=== PATIENT | male | born 1955 | race Caucasian/White ===

== ENCOUNTER 2017-02-11 15:59 | Inpatient (IN) | payer MEDICAID, OTHER, SELFPAY ==
[2017-02-11] MEDS ORDERED: Sodium Chloride 0.9% 1,000 ML IV ONE (16:07)
--- NOTE | 2017-02-11 16:11 | C.PDOC ---
History Of Present Illness 61 y/o male BIBA s/p lifenet EKG showing STEMI. . 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 EMS was called and on arrival, patient found to be hypotensive, bradycardic. IV fluids given, EKG showing ST elevations in lateral leads. Pt initially somnolent and groggy on arrival to ED, currently awake, alert and speaking. Pt currently complaining of left sided chest pain radiating to left arm. Blood pressure improved, aspirin given prior to going to medical laboratory technician. Dr Lockett at bedside on patient arrival who went with patient to medical laboratory technician. past medical history diabetes on metformin. Time Seen by Provider: 02/11/17 16:10 Chief Complaint (Nursing): Chest Pain History Per: Patient, EMS History/Exam Limitations: clinical condition Onset/Duration Of Symptoms: Mins Current Symptoms Are (Timing): Still Present Severity: Moderate Quality: "Pain" Associated Symptoms: Diaphoresis Alleviating Factors: None Recent travel outside of the [place]: No Additional History Per: Family Past Medical History Reviewed: Historical Data, Nursing Documentation, Vital Signs Vital Signs: Last Vital Signs Temp 97.9 F 02/12/17 04:00 Pulse 96 H 02/12/17 07:02 Resp 21 02/12/17 07:02 BP 118/77 02/12/17 07:02 Pulse Ox 94 L 02/12/17 07:02 Family History: States: Unknown Family Hx - Social History Hx Alcohol Use: No Hx Substance Use: No Review Of Systems Review Of Systems: ROS cannot be obtained secondary to pt's inabilty to answer questions. (not obtained due to critical nature of patient) Cardiovascular: Positive for: Chest Pain (left sided radiating to left arm) Physical Exam - Physical Exam Appears: Non-toxic, No Acute Distress Skin: Warm, Dry, No Rash Head: Atraumatic, Normacephalic Neck: Normal, Normal ROM, Supple Chest: Symmetrical Cardiovascular: Rhythm Regular Respiratory: Normal Breath Sounds, No Rales, No Rhonchi, No Wheezing Extremity: No Pedal Edema Extremity: Bilateral: Atraumatic Neurological/Psych: Oriented x3, Normal Speech, Normal Cognition ED Course And Treatment - Laboratory Results Result Diagrams: 02/12/17 05:57 02/12/17 05:57 O2 Sat by Pulse Oximetry: 100 (room air) Pulse Ox Interpretation: Normal Progress Note: Pt seen immediately upon arrival, Lifenet seen and code heart activated prior to patient arrival. Plan: EKG, labs, CXR, IV fluids, medical laboratory technician Disposition Discussed With : Johanna Claire Doctor Will See Patient In The: Hospital Counseled Patient/Family Regarding: Studies Performed - Disposition Disposition: HOSPITALIZED Disposition Time: 16:10 Condition: CRITICAL - Clinical Impression Clinical Impression: Acute myocardial infarction, STEMI (ST elevation myocardial infarction) - Scribe Statement The provider has reviewed the documentation as recorded by the Aquilino Lynch Provider Attestation: All medical record entries made by the Aquilino were at my direction and personally dictated by me. I have reviewed the chart and agree that the record accurately reflects my personal performance of the history, physical exam, medical decision making, and the department course for this patient. I have also personally directed, reviewed, and agree with the discharge instructions and disposition. Decision To Admit - Pt Status Changed To: Hospital Disposition Of: Inpatient - Admit Certification Admit to Inpatient:: After my assessment, the patient will require hospitalization for at least two midnights. This is because of the severity of symptoms shown, intensity of services needed, and/or the medical risk in this patient being treated as an outpatient. - InPatient: Physician Admission Certification: I certify that this patient requires 2 or more midnights of care for the following reason:: stemi - . Bed Request Type: ICU Patient Diagnosis: Acute myocardial infarction, STEMI (ST elevation myocardial infarction)
[2017-02-11] MEDS ORDERED: Iodixanol 320 MG/ML 100 ML BOTTLE IV ONE ×2 (16:12→16:44)
[2017-02-11] MEDS ORDERED: Lidocaine 2% Inj (20ml) ONE (16:13)
[2017-02-11] MEDS ORDERED: Phenylephrine 10 mg/ml Inj ONE (16:13)
[2017-02-11] MEDS ORDERED: Nitroglycerin 50mg in D5W 0 MG/0 ML BOTTLE IV ONE (16:13)
[2017-02-11] MEDS ORDERED: Midazolam 2 MG/2 ML VIAL ONE (16:25)
[2017-02-11 16:29] LABS: BASO % 0.4 % (0.0-2.0); EOS # 0.2 K/uL (0.0-0.7); EOS % 2.9 % (0.0-4.0); HEMOGLOBIN 14.6 g/dL (12.0-18.0); LYMPH # 2.6 K/uL (1.0-4.3); LYMPH % 37.7 % (20.0-40.0); MEAN CELL VOLUME 89.6 fL (80.0-94.0); MEAN CORPUSCULAR HEMOGLOBIN 30.3 pg (27.0-31.0); MEAN CORPUSCULAR HGB CONC 33.8 g/dL (33.0-37.0); MEAN PLATELET VOLUME 7.2 fL (7.2-11.7); MONO # 0.7 K/uL (0.0-0.8); MONO % 9.7 % (0.0-10.0); NEUT # 3.4 K/uL (1.8-7.0); NEUT % 49.3 % (50.0-75.0); RBC 4.81 Mil/uL (4.40-5.90); RED CELL DISTRIBUTION WIDTH 14.2 % (11.5-14.5)
[2017-02-11 16:33] LABS: ALBUMIN 2.8 g/dL (3.5-5.0)
[2017-02-11 16:35] LABS: PROTHROMBIN TIME 11.5 SECONDS (9.7-12.2)
[2017-02-11 16:36] LABS: AST/SGOT 18 U/L (17-59); GFR AFRICAN-AMERICAN > 60; GFR NON-AFRICAN AMERICAN > 60
[2017-02-11 16:37] LABS: ALT/SGPT 24 U/L (21-72); BLOOD UREA NITROGEN 15 mg/dL (9-20); CALCIUM 8.2 mg/dl (8.6-10.4)
[2017-02-11] MEDS: Eptifibatide 0.75 mg/ml 75 MG/100 ML BOTTLE IV SCH (18:30)
[2017-02-11] MEDS: Sodium Chloride 0.9% 500 ML IV SCH (18:30)
--- NOTE | 2017-02-11 19:09 | CP.PCM.CON ---
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 He reports that while in the doctor's office, he felt short of breath, slight chest discomfort, and lost consciousness. He states he regained consciousness when he arrived at [facility]. Patient reports having left arm numbness for about 3 months. Patient is s/p cardiac cath which showed LCA 100% occluded, Mid-RCA 60-70% occluded, and proximal RCA 30-40% occluded. He currently smokes 2 packs per day and has smoked for 40 years. Currently, patient reports his headache is a little better and still have left arm numbness. Patient denies having chest pain, palpitations, nausea, vomiting, shortness of breath, dizziness, lightheadedness, changes in vision, and dysuria. Review of Systems - Constitutional Constitutional: Headache - EENT Eyes: absent: Change in Vision, Other Visual Disturbances Ears: absent: Dizziness - Cardiovascular Cardiovascular: Radiating Pain (to left arm with numbness). absent: Chest Pain , Dyspnea, Edema, Palpitations - Respiratory Respiratory: absent: Dyspnea - Gastrointestinal Gastrointestinal: absent: Abdominal Pain, Nausea, Vomiting - Genitourinary Genitourinary: absent: Dysuria - Musculoskeletal Musculoskeletal: Numbness (left arm), Tingling - Neurological Neurological: Numbness (left arm). absent: Dizziness, Loss of Vision - Endocrine Endocrine: absent: Palpitations Past Patient History - Past Social History Smoking Status: Never Smoked - ENDOCRINE/METABOLIC Hx Diabetes Mellitus Type 2: Yes - MUSCULOSKELETAL/RHEUMATOLOGICAL Hx Falls: No - PSYCHIATRIC Hx Substance Use: No - SURGICAL HISTORY Hx Surgeries: No Meds Allergies/Adverse Reactions: Allergies Allergy/AdvReac Type Severity Reaction Status Date / Time No Known Allergies Allergy Unverified 02/11/17 16:04 - Medications Medications: Current Medications Aspirin (Aspirin Chewable) 81 mg PO DAILY [facility] Carvedilol (Coreg) 3.125 mg PO BID [facility] Enalapril Maleate (Vasotec) 2.5 mg PO DAILY [facility] Furosemide (Lasix) 40 mg IVP ONCE ONE Stop: 02/12/17 04:01 Sodium Chloride (Sodium Chloride 0.9%) 500 mls @ 50 mls/hr IV .Q10H [facility] Stop: 02/12/17 04:00 Eptifibatide (Integrilin) 75 mg in 100 mls @ 5 mls/hr IV .Q20H [facility] Stop: 02/12/17 17:12 Insulin Human Regular (Novolin R) 0 unit SC ACHS [facility] PRN Reason: Protocol Rosuvastatin Calcium (Crestor) 5 mg PO HS [facility] Ticagrelor (Brilinta) 90 mg PO BID [facility] Physical Exam - Head Exam Head Exam: ATRAUMATIC, NORMAL INSPECTION - Eye Exam Eye Exam: EOMI, Normal appearance - ENT Exam ENT Exam: Mucous Membranes Moist - Respiratory Exam Respiratory Exam: Clear to Auscultation Bilateral, NORMAL BREATHING PATTERN. absent: Rhonchi, Wheezes - Cardiovascular Exam Cardiovascular Exam: REGULAR RHYTHM, +S1, +S2 - GI/Abdominal Exam GI & Abdominal Exam: Firm, Normal Bowel Sounds. absent: Tenderness - Extremities Exam Extremities exam: Positive for: normal inspection. Negative for: calf tenderness, pedal edema, tenderness - Neurological Exam Neurological exam: Alert, Oriented x3 - Psychiatric Exam Psychiatric exam: Normal Affect, Normal Mood - Skin Skin Exam: Dry, Intact, Normal Color, Warm Results - Vital Signs Recent Vital Signs: Last Vital Signs Temp 98 F 02/11/17 16:00 Pulse 70 02/11/17 16:05 Resp 22 02/11/17 16:00 BP 110/75 02/11/17 16:00 Pulse Ox 100 02/11/17 16:23 - Labs Result Diagrams: 02/11/17 16:15 02/11/17 16:15 Labs: Laboratory Results - last 24 hr 02/11/17 02/11/17 02/11/17 16:15 16:15 16:15 WBC 7.0 RBC 4.81 Hgb 14.6 Hct 43.1 MCV 89.6 D MCH 30.3 MCHC 33.8 RDW 14.2 Plt Count 281 MPV 7.2 Neut % (Auto) 49.3 L Lymph % (Auto) 37.7 [place] % (Auto) 9.7 Eos % (Auto) 2.9 Baso % (Auto) 0.4 Neut # 3.4 Lymph # 2.6 [place] # 0.7 Eos # 0.2 Baso # 0.0 PT 11.5 INR 1.0 APTT 27 Sodium 137 Potassium 4.3 Chloride 99 Carbon Dioxide 27 Anion Gap 15 BUN 15 Creatinine 1.1 Est GFR ( Amer) > 60 Est GFR (Non-Af Amer) > 60 Random Glucose 161 H Calcium 8.2 L Total Bilirubin 0.5 AST 18 ALT 24 Alkaline Phosphatase 79 Troponin I Total Protein 5.6 L Albumin 2.8 L Globulin 2.8 Albumin/Globulin Ratio 1.0 Blood Type Antibody Screen 02/11/17 02/11/17 16:15 16:15 WBC RBC Hgb Hct MCV MCH MCHC RDW Plt Count MPV Neut % (Auto) Lymph % (Auto) [place] % (Auto) Eos % (Auto) Baso % (Auto) Neut # Lymph # [place] # Eos # Baso # PT INR APTT Sodium Potassium Chloride Carbon Dioxide Anion Gap BUN Creatinine Est GFR ( Amer) Est GFR (Non-Af Amer) Random Glucose Calcium Total Bilirubin AST ALT Alkaline Phosphatase Troponin I < 0.0120 Total Protein Albumin Globulin Albumin/Globulin Ratio Blood Type O POSITIVE Antibody Screen Negative Assessment & Plan - Assessment and Plan (Free Text) Assessment: Neuro: - Alert and oriented x3 Pulm: -Chest xray: f/u CV: - EKG: Acute IN; ST elevations in V1-6 - Code Heart in ED - Cath: LCA 100% occluded; Mid RCA 60-70% occluded, Proximal RCA 30-40% occluded - ECHO: f/u in AM - R/O acute vs chronic IN - Started Integrelin drip- will continue for 24hours, and will finish at 5pm tomorrow. - ROMIs: @16:15 <0.0120& @18:38 <0.104 Endo: - Diabetes- Accucheck - Monitor blood glucose GI: -AST 18, ALT 24 - F/U AM labs Heme: - Monitor H/H Renal: - Monitor BUN/Cr
--- NOTE | 2017-02-11 19:35 | CP.PCM.PN ---
<Ely Hannah - Last Filed: 02/11/17 19:29> Subjective - Date & Time of Evaluation Date of Evaluation: 02/11/17 Time of Evaluation: 03:20 - Subjective Subjective: Code heart called. Per patient's who was present at bedside the patient was at his eye doctor appointment early today and was complaining of a headache. He then passed out at the office. EMS was called and the patient was hypotensive and bradycardic. IV fluids were administered and EKg in the field revealed ST elevations in the later leads. Patient was groggy on arrival and was awake alert and oriented. He was complaining of chest pain which was radiating down his left arm. Dr. Claire was notified. The patient was given aspirin and brilinta and was taken immediately to the labor delivery specialist for intervention. Patient's stated the patient has a history of diabetes but no history of cardiac disease. She stated he took Metformin and 2 other pills this morning. Objective - Vital Signs/Intake and Output Vital Signs (last 24 hours): Temp Pulse Resp BP Pulse Ox 98 F 70 22 110/75 100 02/11/17 16:00 02/11/17 16:05 02/11/17 16:00 02/11/17 16:00 02/11/17 16:23 - Medications Medications: Current Medications Aspirin (Aspirin Chewable) 81 mg PO DAILY [facility] Carvedilol (Coreg) 3.125 mg PO BID [facility] Enalapril Maleate (Vasotec) 2.5 mg PO DAILY [facility] Furosemide (Lasix) 40 mg IVP ONCE ONE Stop: 02/12/17 04:01 Sodium Chloride (Sodium Chloride 0.9%) 500 mls @ 50 mls/hr IV .Q10H [facility] Stop: 02/12/17 04:00 Eptifibatide (Integrilin) 75 mg in 100 mls @ 5 mls/hr IV .Q20H [facility] Stop: 02/12/17 17:12 Insulin Human Regular (Novolin R) 0 unit SC ACHS [facility] PRN Reason: Protocol Rosuvastatin Calcium (Crestor) 5 mg PO HS [facility] Ticagrelor (Brilinta) 90 mg PO BID [facility] Last Admin: 02/11/17 19:26 Dose: Not Given - Labs Labs: 02/11/17 16:15 02/11/17 16:15 PT 11.5 SECONDS (9.7-12.2) 02/11/17 16:15 INR 1.0 02/11/17 16:15 APTT 27 SECONDS (21-34) 02/11/17 16:15 - Constitutional Appears: Non-toxic, No Acute Distress - Head Exam Head Exam: ATRAUMATIC, NORMAL INSPECTION - Eye Exam Eye Exam: EOMI - ENT Exam ENT Exam: Mucous Membranes Moist - Respiratory Exam Respiratory Exam: Clear to Ausculation Bilateral, NORMAL BREATHING PATTERN. absent: Respiratory Distress - Cardiovascular Exam Cardiovascular Exam: REGULAR RHYTHM, +S1, +S2 - GI/Abdominal Exam GI & Abdominal Exam: Soft, Normal Bowel Sounds. absent: Distended, Firm, Guarding, Tenderness - Back Exam Back Exam: NORMAL INSPECTION - Neurological Exam Neurological Exam: Alert, Awake, CN II-XII Intact, Oriented x3 - Psychiatric Exam Psychiatric exam: Anxious, Normal Affect, Normal Mood Assessment and Plan - Assessment and Plan (Free Text) Assessment: For cardiac intervention then will be transferred to ICU. <Janice Lockett V - Last Filed: 02/12/17 22:32> Objective - Vital Signs/Intake and Output Vital Signs (last 24 hours): Temp Pulse Resp BP Pulse Ox 98.3 F 88 26 H 111/63 96 02/12/17 20:00 02/12/17 21:00 02/12/17 21:00 02/12/17 21:03 02/12/17 21:00 Intake and Output: 02/12/17 02/13/17 18:59 06:59 Intake Total 605 100 Output Total 1150 200 Balance -545 -100 - Medications Medications: Current Medications Aspirin (Aspirin Chewable) 81 mg PO DAILY [facility] Last Admin: 02/12/17 09:30 Dose: 81 mg Carvedilol (Coreg) 3.125 mg PO BID [facility] Last Admin: 02/12/17 18:34 Dose: 3.125 mg Enalapril Maleate (Vasotec) 2.5 mg PO DAILY [facility] Last Admin: 02/12/17 09:29 Dose: 2.5 mg Famotidine (Pepcid) 20 mg PO BID [facility] Last Admin: 02/12/17 18:34 Dose: 20 mg Insulin Human Regular (Novolin R) [address] [facility] PRN Reason: Protocol Last Admin: 02/12/17 21:29 Dose: Not Given Nicotine (Nicoderm Cq) 1 patch TD DAILY [facility] Last Admin: 02/12/17 10:59 Dose: 1 patch Rosuvastatin Calcium (Crestor) 5 mg PO HS [facility] Last Admin: 02/12/17 21:38 Dose: 5 mg Ticagrelor (Brilinta) 90 mg PO BID [facility] Last Admin: 02/12/17 18:34 Dose: 90 mg - Labs Labs: 02/12/17 05:57 02/12/17 05:57 PT 11.5 SECONDS (9.7-12.2) 02/11/17 16:15 INR 1.0 02/11/17 16:15 APTT 27 SECONDS (21-34) 02/11/17 16:15 Attending/Attestation - Attestation I have personally seen and examined this patient.: Yes I have fully participated in the care of the patient.: Yes I have reviewed all pertinent clinical information, including history, physical exam and plan: Yes Notes (Text): Hospitalist Note (Responded to Code Heart Called in the ED). on 02/11/17 [facility] called on 02/11/[address] elevation PR. Per patient's who was present at bedside the patient was at his eye doctor appointment early today and was complaining of a headache and chest pain. He then passed out at the office. EMS was called and the patient was hypotensive ( SBP: 70s) and bradycardic. Per parademic,IV fluids were administered (sbp: low 100s) and EKg in the field revealed ST elevations in the lateral leads. Patient was groggy on arrival, but more awake alert and oriented, speaking in Amharic. He was complaining of chest pain which was radiating down his left arm. Code heart was activated, Dr Claire immigration consultant for code heart notified. In the ED, the patient was given aspirin and brilinta and was taken immediately to the labor delivery specialist for intervention. Patient's stated the patient has a history of diabetes but no history of cardiac disease, big smoker, no family hx of PR, no personal hx of PR for her . She stated he took Metformin and 2 other pills this morning. Patient accompanied to labor delivery specialist. Meet with cath team and briefly discussed with Dr. Claire.
[2017-02-11] MEDS ORDERED: Simethicone 80 mg Chewtab PO STA (20:31)
[2017-02-11] MEDS: (Novolin R) Insulin Human Regular 100 units/ml vial SC SCH (22:00)
[2017-02-12 02:28] LABS: CK-MB 91.5 ng/mL (0.0-3.38)
--- NOTE | 2017-02-12 03:04 | CARDCATH ---
PROCEDURE DATE: 02/11/2017 BRIEF CLINICAL HISTORY: The patient is a 61-year-old male with history of hypertension, hyperlipidemia, diabetes. 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 He became diaphoretic,911 was called in. The patient was thought to have an inferior wall myocardial infarction. The patient was transferred to the [facility] where he was consented for the primary angioplasty. PROCEDURE TECHNIQUE: After obtaining the consent, the patient was prepared for the procedure. Right groin was used for access and after obtaining access, a 6-Mauritanian sheath was introduced into the right femoral artery and access was completed without complications. A 6-Mauritanian, 3.5 XB LAD guiding catheter was used to visualize the left coronary artery system. A 6-Mauritanian JR4 diagnostic catheter were used to visualize the right coronary artery system. A 6-Mauritanian pigtail catheter was used to assess the left ventricular diastolic pressure and LV gram. FINDINGS: The patient had 100% proximal LAD with heavy calcification. The patient had a mid RCA above 60% to 70% focal lesion. The patient has 20% to 30% proximal circumflex lesion. After obtaining the initial pictures , intervention was attempted. Balloon was dilated across the lesion and it was felt that the patient had heavy calcification and there was suspicion that it may have dissected, so balloon was withdrawn, but there was no staining seen. Multiple attempts were made to cross the wire. The wire was going through the diagonal branch or the circumflex or septal branch. After multiple attempts and using 200 mL of dye and spending about an hour on the procedure. The procedure was aborted because risk of the complication was greater at this point. The patient tolerated the procedure well. He was asymptomatic. There was no chest pain and then the patient stable. PLAN: The patient will be taken to the ICU where he will be monitored. The patient will be given Integrilin for 24 hours. He will be continued on aspirin, Brilinta, beta-blockers, MADALYN inhibitors, lipid lowering agents. He will be given IV fluids with Lasix and will have an echocardiogram done in the morning. Johanna Claire MD [facility]
[2017-02-12] MEDS: Sodium Chloride 0.9% 500 ML IV SCH (04:00)
[2017-02-12 06:04] LABS: BASO % 0.2 % (0.0-2.0); EOS % 0.1 % (0.0-4.0); HEMOGLOBIN 15.6 g/dL (12.0-18.0); LYMPH # 0.9 K/uL (1.0-4.3); LYMPH % 7.6 % (20.0-40.0); MEAN CELL VOLUME 90.6 fL (80.0-94.0); MEAN CORPUSCULAR HEMOGLOBIN 29.6 pg (27.0-31.0); MEAN CORPUSCULAR HGB CONC 32.6 g/dL (33.0-37.0); MEAN PLATELET VOLUME 8.1 fL (7.2-11.7); MONO # 0.8 K/uL (0.0-0.8); MONO % 6.4 % (0.0-10.0); NEUT # 10.2 K/uL (1.8-7.0); NEUT % 85.7 % (50.0-75.0); PLATELET COUNT 231 K/uL (130-400); RBC 5.27 Mil/uL (4.40-5.90); RED CELL DISTRIBUTION WIDTH 13.9 % (11.5-14.5); WHITE BLOOD COUNT 11.8 K/uL (4.8-10.8)
[2017-02-12 06:17] LABS: ALBUMIN 3.1 g/dL (3.5-5.0)
[2017-02-12 06:20] LABS: ALT/SGPT 69 U/L (21-72); AST/SGOT 463 U/L (17-59); BLOOD UREA NITROGEN 15 mg/dL (9-20); GFR AFRICAN-AMERICAN > 60; GFR NON-AFRICAN AMERICAN > 60
[2017-02-12 06:21] LABS: CALCIUM 8.2 mg/dl (8.6-10.4); MAGNESIUM 1.6 mg/dL (1.6-2.3)
[2017-02-12 08:12] LABS: LYMPHOCYTE 9 % (20-40); MONOCYTE 5 % (0-10); NEUTROPHIL 86 % (50-75); PLATELET ESTIMATE NORMAL (NORMAL); TOTAL CELLS COUNTED 100
[2017-02-12] MEDS ORDERED: Eptifibatide 0.75 mg/ml 75 MG/100 ML BOTTLE IV ONE (08:45)
[2017-02-12] MEDS ORDERED: Eptifibatide 20 mg/10mL Inj IVP ONE (08:46)
--- NOTE | 2017-02-12 09:06 | RAD ---
PROCEDURE: CHEST RADIOGRAPH, 1 VIEW HISTORY: chest pain COMPARISON: None available. FINDINGS: LUNGS: Mild to moderate venous congestion with right hilar prominence. PLEURA: No pneumothorax or pleural fluid seen. CARDIOVASCULAR: Normal. OSSEOUS STRUCTURES: No significant abnormalities. VISUALIZED UPPER ABDOMEN: Normal. OTHER FINDINGS: None. IMPRESSION: Mild to moderate venous congestion with right hilar prominence.
[2017-02-12] MEDS: (Novolin R) Insulin Human Regular 100 units/ml vial SC SCH ×7 (09:30→21:29)
[2017-02-12] MEDS: Eptifibatide 0.75 mg/ml 75 MG/100 ML BOTTLE IV SCH ×2 (09:48→15:49)
--- NOTE | 2017-02-12 10:30 | CP.PCM.HP ---
<SarahivincentHailey JuniVega - Last Filed: 02/12/17 13:59> History of Present Illness - History of Present Illness History of Present Illness: CC: "I was brought in for a heart attack" HPI: 61 year old male with a medical history of hypertension, diabetes, and hypercholesteremia, presents to the ED via ambulance after experiencing left arm numbness and pain, sweating and severe headache while in 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 He reports that while in the doctor's office, he felt short of breath, slight chest discomfort, and lost consciousness. He states he regained consciousness when he arrived at [facility]. Patient reports having left arm numbness for about 3 months. Patient is s/p cardiac cath which showed LCA 100% occluded, Mid-RCA 60-70% occluded, and proximal RCA 30-40% occluded. He currently smokes 2 packs per day and has smoked for 40 years. Currently, patient reports his headache is a little better and still have left arm numbness. Patient denies having chest pain, palpitations, nausea, vomiting, shortness of breath, dizziness, lightheadedness, changes in vision, and dysuria. PMD: Dr. Mota PMHx: Diabetes, HTN, hypercholesteremia SurgHx: denies FamHx: denies SocHx: 2ppd for 40 yrs; denies alcohol and drug use Allergies: NKDA Medications: metformin and other medications for his DM and HTN "doesn't remember names" Present on Admission - Present on Admission Any Indicators Present on Admission: Yes History of Uncontrolled Diabetes: Yes Review of Systems - Constitutional Constitutional: Headache - EENT Eyes: absent: Change in Vision, Other Visual Disturbances Ears: absent: Dizziness - Cardiovascular Cardiovascular: Radiating Pain (left arm). absent: Chest Pain, Dyspnea, Edema, Palpitations - Respiratory Respiratory: absent: Cough, Dyspnea - Gastrointestinal Gastrointestinal: absent: Abdominal Pain, Nausea, Vomiting - Genitourinary Genitourinary: absent: Dysuria - Musculoskeletal Musculoskeletal: Numbness (left arm), Tingling - Neurological Neurological: Numbness (left arm), Headaches. absent: Dizziness, Loss of Vision - Endocrine Endocrine: absent: Palpitations Past Patient History - Past Medical History & Family History Past Medical History?: Yes - Past Social History Smoking Status: Never Smoked - CARDIAC Hx Cardiac Disorders: Yes Hx Hypercholesterolemia: Yes Hx Hypertension: Yes - PULMONARY Hx Respiratory Disorders: No - NEUROLOGICAL Hx Neurological Disorder: No - HEENT Hx HEENT Problems: Yes Other/Comment: eyglasses for driving - RENAL Hx Chronic Kidney Disease: No - ENDOCRINE/METABOLIC Hx Diabetes Mellitus Type 2: Yes - HEMATOLOGICAL/ONCOLOGICAL Hx Blood Disorders: No - INTEGUMENTARY Hx Dermatological Problems: No - MUSCULOSKELETAL/RHEUMATOLOGICAL Hx Falls: No - GASTROINTESTINAL Hx Gastrointestinal Disorders: No - GENITOURINARY/GYNECOLOGICAL Hx Genitourinary Disorders: No - PSYCHIATRIC Hx Substance Use: No - SURGICAL HISTORY Hx Surgeries: No - ANESTHESIA Hx Anesthesia: No Hx Anesthesia Reactions: No Hx Malignant Hyperthermia: No Meds Allergies/Adverse Reactions: Allergies Allergy/AdvReac Type Severity Reaction Status Date / Time No Known Allergies Allergy Unverified 02/11/17 16:04 Physical Exam - Head Exam Head Exam: NORMAL INSPECTION, NORMOCEPHALIC - Eye Exam Eye Exam: EOMI, Normal appearance - ENT Exam ENT Exam: Mucous Membranes Moist - Respiratory Exam Respiratory Exam: Clear to Auscultation Bilateral, NORMAL BREATHING PATTERN. absent: Rhonchi, Wheezes - Cardiovascular Exam Cardiovascular Exam: REGULAR RHYTHM, +S1, +S2 - GI/Abdominal Exam GI & Abdominal Exam: Firm, Normal Bowel Sounds. absent: Tenderness - Extremities Exam Extremities exam: Positive for: normal inspection. Negative for: calf tenderness, pedal edema, tenderness - Neurological Exam Neurological exam: Alert, Oriented x3 - Psychiatric Exam Psychiatric exam: Normal Affect, Normal Mood - Skin Skin Exam: Dry, Intact, Normal Color, Warm Results - Vital Signs Recent Vital Signs: Last Vital Signs Temp 98.3 F 02/12/17 09:00 Pulse 76 02/12/17 10:10 Resp 22 02/12/17 10:10 BP 126/87 02/12/17 10:02 Pulse Ox 96 02/12/17 10:10 - Labs Result Diagrams: 02/12/17 05:57 02/12/17 05:57 Labs: Laboratory Results - last 24 hr 02/11/17 02/11/17 02/11/17 16:15 16:15 16:15 WBC 7.0 RBC 4.81 Hgb 14.6 Hct 43.1 MCV 89.6 D MCH 30.3 MCHC 33.8 RDW 14.2 Plt Count 281 MPV 7.2 Neut % (Auto) 49.3 L Lymph % (Auto) 37.7 [place] % (Auto) 9.7 Eos % (Auto) 2.9 Baso % (Auto) 0.4 Neut # 3.4 Lymph # 2.6 [place] # 0.7 Eos # 0.2 Baso # 0.0 Neutrophils % (Manual) Lymphocytes % (Manual) Monocytes % (Manual) Platelet Estimate RBC Morphology PT 11.5 INR 1.0 APTT 27 Sodium 137 Potassium 4.3 Chloride 99 Carbon Dioxide 27 Anion Gap 15 BUN 15 Creatinine 1.1 Est GFR ( Amer) > 60 Est GFR (Non-Af Amer) > 60 POC Glucose (mg/dL) Random Glucose 161 H Calcium 8.2 L Phosphorus Magnesium Total Bilirubin 0.5 AST 18 ALT 24 Alkaline Phosphatase 79 Total Creatine Kinase CK-MB (Mass) Troponin I Troponin I, Quant Total Protein 5.6 L Albumin 2.8 L Globulin 2.8 Albumin/Globulin Ratio 1.0 Blood Type Antibody Screen 02/11/17 02/11/17 02/11/17 16:15 16:15 18:38 WBC RBC Hgb Hct MCV MCH MCHC RDW Plt Count MPV Neut % (Auto) Lymph % (Auto) [place] % (Auto) Eos % (Auto) Baso % (Auto) Neut # Lymph # [place] # Eos # Baso # Neutrophils % (Manual) Lymphocytes % (Manual) Monocytes % (Manual) Platelet Estimate RBC Morphology PT INR APTT Sodium Potassium Chloride Carbon Dioxide Anion Gap BUN Creatinine Est GFR ( Amer) Est GFR (Non-Af Amer) POC Glucose (mg/dL) Random Glucose Calcium Phosphorus Magnesium Total Bilirubin AST ALT Alkaline Phosphatase Total Creatine Kinase CK-MB (Mass) Troponin I < 0.0120 0.1040 Troponin I, Quant Total Protein Albumin Globulin Albumin/Globulin Ratio Blood Type O POSITIVE Antibody Screen Negative 02/11/17 02/12/17 02/12/17 21:31 01:51 05:57 WBC RBC Hgb Hct MCV MCH MCHC RDW Plt Count MPV Neut % (Auto) Lymph % (Auto) [place] % (Auto) Eos % (Auto) Baso % (Auto) Neut # Lymph # [place] # Eos # Baso # Neutrophils % (Manual) Lymphocytes % (Manual) Monocytes % (Manual) Platelet Estimate RBC Morphology PT INR APTT Sodium 135 Potassium 4.1 Chloride 99 Carbon Dioxide 24 Anion Gap 16 BUN 15 Creatinine 0.8 Est GFR ( Amer) > 60 Est GFR (Non-Af Amer) > 60 POC Glucose (mg/dL) 210 H Random Glucose 159 H Calcium 8.2 L Phosphorus 3.7 Magnesium 1.6 Total Bilirubin 0.8 AST 463 H D ALT 69 Alkaline Phosphatase 77 Total Creatine Kinase 1414 H CK-MB (Mass) 91.5 H Troponin I Troponin I, Quant 20.3000 H* Total Protein 6.2 L Albumin 3.1 L Globulin 3.1 Albumin/Globulin Ratio 1.0 Blood Type Antibody Screen 02/12/17 02/12/17 05:57 07:20 WBC 11.8 H D RBC 5.27 Hgb 15.6 Hct 47.8 MCV 90.6 MCH 29.6 MCHC 32.6 L RDW 13.9 Plt Count 231 MPV 8.1 Neut % (Auto) 85.7 H Lymph % (Auto) 7.6 L [place] % (Auto) 6.4 Eos % (Auto) 0.1 Baso % (Auto) 0.2 Neut # 10.2 H Lymph # 0.9 L [place] # 0.8 Eos # 0.0 Baso # 0.0 Neutrophils % (Manual) 86 H Lymphocytes % (Manual) 9 L Monocytes % (Manual) 5 Platelet Estimate Normal RBC Morphology Normal PT INR APTT Sodium Potassium Chloride Carbon Dioxide Anion Gap BUN Creatinine Est GFR ( Amer) Est GFR (Non-Af Amer) POC Glucose (mg/dL) 158 H Random Glucose Calcium Phosphorus Magnesium Total Bilirubin AST ALT Alkaline Phosphatase Total Creatine Kinase CK-MB (Mass) Troponin I Troponin I, Quant Total Protein Albumin Globulin Albumin/Globulin Ratio Blood Type Antibody Screen Assessment & Plan (1) STEMI (ST elevation myocardial infarction) Assessment and Plan: Code Heart in ED - EKG: Acute ME; ST elevations in V1-6 - Chest xray: mild to moderate venous congestion with right hilar prominence. - Cath: LCA 100% occluded; Mid RCA 60-70% occluded, Proximal RCA 20-30% occluded - ECHO: f/u - Started Integrelin drip-for 24hours and will finish at 5pm today, 02/12/17. Will continue medical management as per Dr. Claire. - ROMIs: @16:15 <0.0120& @18:38 <0.104 - Troponin 02/12 at 1:21am: 20.3000 - Toponin 02/12 at 11:03am: 107.000 - Lipid Panel: f/u - Cardiology consulted- Dr. Claire, help appreciated - Brillinta 90mg PO BID, ASA 81mg PO daily, Coreg 3.125mg PO BID, Enalapril 2.5mg PO daily, Crestor 5mg PO HS Status: Acute (2) Diabetes Assessment and Plan: - Monitor blood glucose - Accucheck - HgbA1c: f/u - ISS Status: Acute (3) Hypertension Assessment and Plan: Monitor BP - Coreg 3.125mg PO BID Status: Acute (4) Hypercholesteremia Assessment and Plan: - Lipid Panel: f/u - Crestor 5mg PO HS Status: Acute (5) Tobacco abuse Assessment and Plan: Nicotine Patch 21mg/24hr, 1 patch TD Daily Status: Acute (6) Prophylactic measure Assessment and Plan: C/I SCDs- patient is on integrelin until 5pm on 02/12/17 Pepcid 20mg PO BID ASA 81mg PO Daily Heart Healthy Diet Status: Acute <Janice Lockett V - Last Filed: 02/12/17 22:29> Results - Vital Signs Recent Vital Signs: Last Vital Signs Temp 98.3 F 02/12/17 20:00 Pulse 88 02/12/17 21:00 Resp 26 H 02/12/17 21:00 BP 111/63 02/12/17 21:03 Pulse Ox 96 02/12/17 21:00 - Labs Result Diagrams: 02/12/17 05:57 02/12/17 05:57 Labs: Laboratory Results - last 24 hr 02/12/17 02/12/17 02/12/17 01:51 05:57 05:57 WBC 11.8 H D RBC 5.27 Hgb 15.6 Hct 47.8 MCV 90.6 MCH 29.6 MCHC 32.6 L RDW 13.9 Plt Count 231 MPV 8.1 Neut % (Auto) 85.7 H Lymph % (Auto) 7.6 L [place] % (Auto) 6.4 Eos % (Auto) 0.1 Baso % (Auto) 0.2 Neut # 10.2 H Lymph # 0.9 L [place] # 0.8 Eos # 0.0 Baso # 0.0 Neutrophils % (Manual) 86 H Lymphocytes % (Manual) 9 L Monocytes % (Manual) 5 Platelet Estimate Normal RBC Morphology Normal Sodium 135 Potassium 4.1 Chloride 99 Carbon Dioxide 24 Anion Gap 16 BUN 15 Creatinine 0.8 Est GFR ( Amer) > 60 Est GFR (Non-Af Amer) > 60 POC Glucose (mg/dL) Random Glucose 159 H Hemoglobin A1c Calcium 8.2 L Phosphorus 3.7 Magnesium 1.6 Total Bilirubin 0.8 AST 463 H D ALT 69 Alkaline Phosphatase 77 Total Creatine Kinase 1414 H CK-MB (Mass) 91.5 H Troponin I Troponin I, Quant 20.3000 H* Total Protein 6.2 L Albumin 3.1 L Globulin 3.1 Albumin/Globulin Ratio 1.0 02/12/17 02/12/17 02/12/17 07:20 11:03 11:17 WBC RBC Hgb Hct MCV MCH MCHC RDW Plt Count MPV Neut % (Auto) Lymph % (Auto) [place] % (Auto) Eos % (Auto) Baso % (Auto) Neut # Lymph # [place] # Eos # Baso # Neutrophils % (Manual) Lymphocytes % (Manual) Monocytes % (Manual) Platelet Estimate RBC Morphology Sodium Potassium Chloride Carbon Dioxide Anion Gap BUN Creatinine Est GFR ( Amer) Est GFR (Non-Af Amer) POC Glucose (mg/dL) 158 H 144 H Random Glucose Hemoglobin A1c Calcium Phosphorus Magnesium Total Bilirubin AST ALT Alkaline Phosphatase Total Creatine Kinase CK-MB (Mass) Troponin I 107.0000 H* Troponin I, Quant Total Protein Albumin Globulin Albumin/Globulin Ratio 02/12/17 02/12/17 02/12/17 14:02 15:54 21:05 WBC RBC Hgb Hct MCV MCH MCHC RDW Plt Count MPV Neut % (Auto) Lymph % (Auto) [place] % (Auto) Eos % (Auto) Baso % (Auto) Neut # Lymph # [place] # Eos # Baso # Neutrophils % (Manual) Lymphocytes % (Manual) Monocytes % (Manual) Platelet Estimate RBC Morphology Sodium Potassium Chloride Carbon Dioxide Anion Gap BUN Creatinine Est GFR ( Amer) Est GFR (Non-Af Amer) POC Glucose (mg/dL) 197 H 165 H Random Glucose Hemoglobin A1c 7.9 H D Calcium Phosphorus Magnesium Total Bilirubin AST ALT Alkaline Phosphatase Total Creatine Kinase CK-MB (Mass) Troponin I Troponin I, Quant Total Protein Albumin Globulin Albumin/Globulin Ratio Attending/Attestation - Attestation I have personally seen and examined this patient.: Yes I have fully participated in the care of the patient.: Yes I have reviewed all pertinent clinical information: Yes Notes (Text): Patient seen, examined, and case discussed with ICU Resident. Patient was Code Heart on 02/11/17; for ST Elevation ME in light of cardiac risk factors: DM, smoker, and male. Per cath, LCA 100% occluded; Mid RCA 60-70% occluded, Proximal RCA 20-30% occluded. Per cardiology, patient is on aspirin, brilinta, beta-tom, talita-inhibitor and statin for post-mI. Patient is on Integril for 24 hours post-cath. Will follow-up with half sole fitter. Had extensive conversation with the family about the deleterious effects including but not limited to ME, stroke, blindness, CKD/Dialysis, amputation and the continued smoking not only adverse side effects on the heart but also cancer risk. Patient to be monitored post-cath day one. Discussed with ICU and ICU resident. (1) STEMI (ST elevation myocardial infarction) Assessment and Plan: Admit to ICU under hospitalist service Cardiology: Dr. Claire on board Code Heart in ED on 02/11/17 - EKG: Acute ME; ST elevations in V1-6 - Chest xray: mild to moderate venous congestion with right hilar prominence. - Cath: LCA 100% occluded; Mid RCA 60-70% occluded, Proximal RCA 20-30% occluded - ECHO: f/u - Started Integrelin drip-for 24hours and will finish at 5pm today, 02/12/17. Will continue medical management as per Dr. Claire. - ROMIs: @16:15 <0.0120& @18:38 <0.104 - Troponin 8/ at 1:21am: 20.3000 - Toponin / at 11:03am: 107.000 - Lipid Panel: f/u in AM; a1c in AM - Cardiology consulted- Dr. Claire, help appreciated - Brillinta 90mg PO BID, ASA 81mg PO daily, Coreg 3.125mg PO BID, Enalapril 2.5mg PO daily, Crestor 5mg PO HS Status: Acute (2) Diabetes Assessment and Plan: - Monitor blood glucose - Accuchecks qac and HS - HgbA1c: f/u - ISS -Metformin day of cath; monitor BUN/Cr Status: Chronic (3) Hypertension Assessment and Plan: Monitor BP - Coreg 3.125mg PO BID - Enalapril 2.5mg PO daily Status: Chronic (4) Hypercholesteremia Assessment and Plan: - Lipid Panel: f/u in AM - Crestor 5mg PO HS Status: Chronic (5) Tobacco abuse Assessment and Plan: Nicotine Patch 21mg/24hr, 1 patch TD Daily Discussed adverse side effects of smoking including cardiac and cancer risk Status: Acute (6) Prophylactic measure Assessment and Plan: C/I SCDs- patient is on integrelin until 5pm on 02/12/17 Pepcid 20mg PO BID ASA 81mg PO Daily Heart Healthy Diet Status: Acute
--- NOTE | 2017-02-12 10:35 | CP.CCUPN ---
<Hailey Suresh - Last Filed: 02/12/17 10:30> CCU Subjective - Physician Review Subjective (Free Text): Patient was seen and examined at bedside in no acute distress this morning. Patient has no complaints and feels better. Patient denies chest pain, palpitations, shortness of breath, abdominal pain, leg pain, nausea, and vomiting. 02/12/17 10:30 CCU Objective - Vital Signs / Intake & Output Vital Signs (Last 4 hours): Vital Signs Temp Pulse Resp BP Pulse Ox 02/12/17 10:10 76 22 96 02/12/17 10:02 73 22 126/87 95 02/12/17 10:00 76 25 H 95 02/12/17 09:50 75 25 H 95 02/12/17 09:40 77 16 94 L 02/12/17 09:30 75 18 97 02/12/17 09:29 123/81 02/12/17 09:20 77 24 97 02/12/17 09:10 81 11 L 95 02/12/17 09:02 84 16 123/81 96 02/12/17 09:00 98.3 F 85 18 94 L 02/12/17 08:50 81 17 96 02/12/17 08:40 87 21 97 02/12/17 08:30 71 22 97 02/12/17 08:20 78 21 97 02/12/17 08:10 78 20 96 02/12/17 08:03 76 19 124/85 95 02/12/17 08:00 73 19 95 02/12/17 07:50 77 21 95 02/12/17 07:40 74 22 95 02/12/17 07:32 100 02/12/17 07:30 77 16 95 02/12/17 07:20 78 24 97 02/12/17 07:02 96 H 21 118/77 94 L 02/12/17 07:00 72 20 97 02/12/17 06:50 80 20 96 02/12/17 06:40 77 21 95 Intake and Output (Last 8hrs): Intake & Output 02/11/17 02/12/17 02/12/17 22:59 06:59 14:59 Intake Total 65 40 115 Output Total 0 1150 800 Balance 65 1116 -689 Intake: Intake, IV Amount 15 35 15 Right Antecubital 15 35 15 Oral 50 5 100 Output: Urine 0 1150 800 Urine, Voided 0 1150 800 Other: # Voids Urine, Voided 1 - Physical Exam Head: Positive for: Atraumatic, Normocephalic Extroacular Muscles: Positive for: EOMI Mouth: Positive for: Moist Mucous Membranes Neck: Positive for: Normal Range of Motion Respiratory/Chest: Positive for: Clear to Auscultation. Negative for: Wheezes, Rhonchi Cardiovascular: Positive for: Regular Rate and Rhythm, Normal S1, S2 Abdomen: Positive for: Normal Bowel Sounds. Negative for: Tenderness Upper Extremity: Positive for: Normal Inspection Lower Extremity: Positive for: Normal Inspection. Negative for: Edema Skin: Positive for: Warm, Dry, Rashes, Normal Color Psychiatric: Positive for: Alert, Oriented x 3 - Medications Active Medications: Active Medications Generic Name Dose Route Start Last Admin Trade Name Freq PRN Reason Stop Dose Admin Aspirin 81 mg 02/12/17 10:00 02/12/17 09:30 Aspirin Chewable PO 81 mg DAILY ARMANDO Administration Carvedilol 3.125 mg 02/11/17 18:00 02/12/17 09:29 Coreg PO 3.125 mg BID ARMANDO Administration Enalapril Maleate 2.5 mg 02/12/17 10:00 02/12/17 09:29 Vasotec PO 2.5 mg DAILY ARMANDO Administration Famotidine 20 mg 02/12/17 10:00 02/12/17 09:29 Pepcid PO 20 mg BID ARMANDO Administration Eptifibatide 75 mg in 100 mls @ 5 mls/hr 02/11/17 17:11 02/12/17 09:48 Integrilin IV 02/12/17 17:12 5 mls/hr .Q20H ARMANDO Administration Insulin Human Regular 0 unit 02/11/17 22:00 02/12/17 09:30 Novolin R SC 2 unit ACHS ARMANDO Administration Protocol Insulin Human Regular 0 unit 02/12/17 07:30 02/12/17 09:31 Novolin R SC Not Given ACHS ARMANDO Protocol Nicotine 1 patch 02/12/17 10:00 Nicoderm Cq TD DAILY ARMANDO Rosuvastatin Calcium 5 mg 02/11/17 22:00 02/11/17 21:12 Crestor PO 5 mg HS ARMANDO Administration Ticagrelor 90 mg 02/11/17 18:00 02/12/17 09:29 Brilinta PO 90 mg BID ARMANDO Administration - Patient Studies Lab Studies: Lab Studies 02/12/17 02/12/17 02/12/17 Range/Units 07:20 05:57 05:57 WBC 11.8 H D (4.8-10.8) K/uL RBC 5.27 (4.40-5.90) Mil/uL Hgb 15.6 (12.0-18.0) g/dL Hct 47.8 (35.0-51.0) % MCV 90.6 (80.0-94.0) fL MCH 29.6 (27.0-31.0) pg MCHC 32.6 L (33.0-37.0) g/dL RDW 13.9 (11.5-14.5) % Plt Count 231 (130-400) K/uL MPV 8.1 (7.2-11.7) fL Neut % (Auto) 85.7 H (50.0-75.0) % Lymph % (Auto) 7.6 L (20.0-40.0) % [place] % (Auto) 6.4 (0.0-10.0) % Eos % (Auto) 0.1 (0.0-4.0) % Baso % (Auto) 0.2 (0.0-2.0) % Neut # 10.2 H (1.8-7.0) K/uL Lymph # 0.9 L (1.0-4.3) K/uL [place] # 0.8 (0.0-0.8) K/uL Eos # 0.0 (0.0-0.7) K/uL Baso # 0.0 (0.0-0.2) K/uL Neutrophils % (Manual) 86 H (50-75) % Lymphocytes % (Manual) 9 L (20-40) % Monocytes % (Manual) 5 (0-10) % Platelet Estimate Normal (NORMAL) RBC Morphology Normal PT (9.7-12.2) SECONDS INR APTT (21-34) SECONDS Sodium 135 (132-148) mmol/L Potassium 4.1 (3.6-5.2) mmol/L Chloride 99 (98-107) mmol/L Carbon Dioxide 24 (22-30) mmol/L Anion Gap 16 (10-20) BUN 15 (9-20) mg/dL Creatinine 0.8 (0.8-1.5) MG/DL Est GFR ( Amer) > 60 Est GFR (Non-Af Amer) > 60 POC Glucose (mg/dL) 158 H (65-110) mg/dL Random Glucose 159 H (75-110) mg/dL Calcium 8.2 L (8.6-10.4) mg/dl Phosphorus 3.7 (2.5-4.5) mg/dL Magnesium 1.6 (1.6-2.3) mg/dL Total Bilirubin 0.8 (0.2-1.3) mg/dL AST 463 H D (17-59) U/L ALT 69 (21-72) U/L Alkaline Phosphatase 77 (38-126) U/L Total Creatine Kinase (55-170) U/L CK-MB (Mass) (0.0-3.38) ng/mL Troponin I (0.00-0.120) ng/mL Troponin I, Quant (0.00-0.120) ng/mL Total Protein 6.2 L (6.3-8.3) g/dL Albumin 3.1 L (3.5-5.0) g/dL Globulin 3.1 (2.2-3.9) gm/dL Albumin/Globulin Ratio 1.0 (1.0-2.1) Blood Type Antibody Screen 02/12/17 02/11/17 02/11/17 Range/Units 01:51 21:31 18:38 WBC (4.8-10.8) K/uL RBC (4.40-5.90) Mil/uL Hgb (12.0-18.0) g/dL Hct (35.0-51.0) % MCV (80.0-94.0) fL MCH (27.0-31.0) pg MCHC (33.0-37.0) g/dL RDW (11.5-14.5) % Plt Count (130-400) K/uL MPV (7.2-11.7) fL Neut % (Auto) (50.0-75.0) % Lymph % (Auto) (20.0-40.0) % [place] % (Auto) (0.0-10.0) % Eos % (Auto) (0.0-4.0) % Baso % (Auto) (0.0-2.0) % Neut # (1.8-7.0) K/uL Lymph # (1.0-4.3) K/uL [place] # (0.0-0.8) K/uL Eos # (0.0-0.7) K/uL Baso # (0.0-0.2) K/uL Neutrophils % (Manual) (50-75) % Lymphocytes % (Manual) (20-40) % Monocytes % (Manual) (0-10) % Platelet Estimate (NORMAL) RBC Morphology PT (9.7-12.2) SECONDS INR APTT (21-34) SECONDS Sodium (132-148) mmol/L Potassium (3.6-5.2) mmol/L Chloride (98-107) mmol/L Carbon Dioxide (22-30) mmol/L Anion Gap (10-20) BUN (9-20) mg/dL Creatinine (0.8-1.5) MG/DL Est GFR ( Amer) Est GFR (Non-Af Amer) POC Glucose (mg/dL) 210 H (65-110) mg/dL Random Glucose (75-110) mg/dL Calcium (8.6-10.4) mg/dl Phosphorus (2.5-4.5) mg/dL Magnesium (1.6-2.3) mg/dL Total Bilirubin (0.2-1.3) mg/dL AST (17-59) U/L ALT (21-72) U/L Alkaline Phosphatase (38-126) U/L Total Creatine Kinase 1414 H (55-170) U/L CK-MB (Mass) 91.5 H (0.0-3.38) ng/mL Troponin I 0.1040 (0.00-0.120) ng/mL Troponin I, Quant 20.3000 H* (0.00-0.120) ng/mL Total Protein (6.3-8.3) g/dL Albumin (3.5-5.0) g/dL Globulin (2.2-3.9) gm/dL Albumin/Globulin Ratio (1.0-2.1) Blood Type Antibody Screen 0702/11/17 02/11/17 Range/Units 16:15 16:15 16:15 WBC (4.8-10.8) K/uL RBC (4.40-5.90) Mil/uL Hgb (12.0-18.0) g/dL Hct (35.0-51.0) % MCV (80.0-94.0) fL MCH (27.0-31.0) pg MCHC (33.0-37.0) g/dL RDW (11.5-14.5) % Plt Count (130-400) K/uL MPV (7.2-11.7) fL Neut % (Auto) (50.0-75.0) % Lymph % (Auto) (20.0-40.0) % [place] % (Auto) (0.0-10.0) % Eos % (Auto) (0.0-4.0) % Baso % (Auto) (0.0-2.0) % Neut # (1.8-7.0) K/uL Lymph # (1.0-4.3) K/uL [place] # (0.0-0.8) K/uL Eos # (0.0-0.7) K/uL Baso # (0.0-0.2) K/uL Neutrophils % (Manual) (50-75) % Lymphocytes % (Manual) (20-40) % Monocytes % (Manual) (0-10) % Platelet Estimate (NORMAL) RBC Morphology PT (9.7-12.2) SECONDS INR APTT (21-34) SECONDS Sodium 137 (132-148) mmol/L Potassium 4.3 (3.6-5.2) mmol/L Chloride 99 (98-107) mmol/L Carbon Dioxide 27 (22-30) mmol/L Anion Gap 15 (10-20) BUN 15 (9-20) mg/dL Creatinine 1.1 (0.8-1.5) MG/DL Est GFR ( Amer) > 60 Est GFR (Non-Af Amer) > 60 POC Glucose (mg/dL) (65-110) mg/dL Random Glucose 161 H (75-110) mg/dL Calcium 8.2 L (8.6-10.4) mg/dl Phosphorus (2.5-4.5) mg/dL Magnesium (1.6-2.3) mg/dL Total Bilirubin 0.5 (0.2-1.3) mg/dL AST 18 (17-59) U/L ALT 24 (21-72) U/L Alkaline Phosphatase 79 (38-126) U/L Total Creatine Kinase (55-170) U/L CK-MB (Mass) (0.0-3.38) ng/mL Troponin I < 0.0120 (0.00-0.120) ng/mL Troponin I, Quant (0.00-0.120) ng/mL Total Protein 5.6 L (6.3-8.3) g/dL Albumin 2.8 L (3.5-5.0) g/dL Globulin 2.8 (2.2-3.9) gm/dL Albumin/Globulin Ratio 1.0 (1.0-2.1) Blood Type O POSITIVE Antibody Screen Negative 02/11/17 02/11/17 Range/Units 16:15 16:15 WBC 7.0 (4.8-10.8) K/uL RBC 4.81 (4.40-5.90) Mil/uL Hgb 14.6 (12.0-18.0) g/dL Hct 43.1 (35.0-51.0) % MCV 89.6 D (80.0-94.0) fL MCH 30.3 (27.0-31.0) pg MCHC 33.8 (33.0-37.0) g/dL RDW 14.2 (11.5-14.5) % Plt Count 281 (130-400) K/uL MPV 7.2 (7.2-11.7) fL Neut % (Auto) 49.3 L (50.0-75.0) % Lymph % (Auto) 37.7 (20.0-40.0) % [place] % (Auto) 9.7 (0.0-10.0) % Eos % (Auto) 2.9 (0.0-4.0) % Baso % (Auto) 0.4 (0.0-2.0) % Neut # 3.4 (1.8-7.0) K/uL Lymph # 2.6 (1.0-4.3) K/uL [place] # 0.7 (0.0-0.8) K/uL Eos # 0.2 (0.0-0.7) K/uL Baso # 0.0 (0.0-0.2) K/uL Neutrophils % (Manual) (50-75) % Lymphocytes % (Manual) (20-40) % Monocytes % (Manual) (0-10) % Platelet Estimate (NORMAL) RBC Morphology PT 11.5 (9.7-12.2) SECONDS INR 1.0 APTT 27 (21-34) SECONDS Sodium (132-148) mmol/L Potassium (3.6-5.2) mmol/L Chloride (98-107) mmol/L Carbon Dioxide (22-30) mmol/L Anion Gap (10-20) BUN (9-20) mg/dL Creatinine (0.8-1.5) MG/DL Est GFR ( Amer) Est GFR (Non-Af Amer) POC Glucose (mg/dL) (65-110) mg/dL Random Glucose (75-110) mg/dL Calcium (8.6-10.4) mg/dl Phosphorus (2.5-4.5) mg/dL Magnesium (1.6-2.3) mg/dL Total Bilirubin (0.2-1.3) mg/dL AST (17-59) U/L ALT (21-72) U/L Alkaline Phosphatase (38-126) U/L Total Creatine Kinase (55-170) U/L CK-MB (Mass) (0.0-3.38) ng/mL Troponin I (0.00-0.120) ng/mL Troponin I, Quant (0.00-0.120) ng/mL Total Protein (6.3-8.3) g/dL Albumin (3.5-5.0) g/dL Globulin (2.2-3.9) gm/dL Albumin/Globulin Ratio (1.0-2.1) Blood Type Antibody Screen Laboratory Results - last 24 hr 02/11/17 02/11/17 02/11/17 16:15 16:15 16:15 WBC 7.0 RBC 4.81 Hgb 14.6 Hct 43.1 MCV 89.6 D MCH 30.3 MCHC 33.8 RDW 14.2 Plt Count 281 MPV 7.2 Neut % (Auto) 49.3 L Lymph % (Auto) 37.7 [place] % (Auto) 9.7 Eos % (Auto) 2.9 Baso % (Auto) 0.4 Neut # 3.4 Lymph # 2.6 [place] # 0.7 Eos # 0.2 Baso # 0.0 Neutrophils % (Manual) Lymphocytes % (Manual) Monocytes % (Manual) Platelet Estimate RBC Morphology PT 11.5 INR 1.0 APTT 27 Sodium 137 Potassium 4.3 Chloride 99 Carbon Dioxide 27 Anion Gap 15 BUN 15 Creatinine 1.1 Est GFR ( Amer) > 60 Est GFR (Non-Af Amer) > 60 POC Glucose (mg/dL) Random Glucose 161 H Calcium 8.2 L Phosphorus Magnesium Total Bilirubin 0.5 AST 18 ALT 24 Alkaline Phosphatase 79 Total Creatine Kinase CK-MB (Mass) Troponin I Troponin I, Quant Total Protein 5.6 L Albumin 2.8 L Globulin 2.8 Albumin/Globulin Ratio 1.0 Blood Type Antibody Screen 02/11/17 02/11/17 02/11/17 16:15 16:15 18:38 WBC RBC Hgb Hct MCV MCH MCHC RDW Plt Count MPV Neut % (Auto) Lymph % (Auto) [place] % (Auto) Eos % (Auto) Baso % (Auto) Neut # Lymph # [place] # Eos # Baso # Neutrophils % (Manual) Lymphocytes % (Manual) Monocytes % (Manual) Platelet Estimate RBC Morphology PT INR APTT Sodium Potassium Chloride Carbon Dioxide Anion Gap BUN Creatinine Est GFR ( Amer) Est GFR (Non-Af Amer) POC Glucose (mg/dL) Random Glucose Calcium Phosphorus Magnesium Total Bilirubin AST ALT Alkaline Phosphatase Total Creatine Kinase CK-MB (Mass) Troponin I < 0.0120 0.1040 Troponin I, Quant Total Protein Albumin Globulin Albumin/Globulin Ratio Blood Type O POSITIVE Antibody Screen Negative 02/11/17 02/12/17 02/12/17 21:31 01:51 05:57 WBC RBC Hgb Hct MCV MCH MCHC RDW Plt Count MPV Neut % (Auto) Lymph % (Auto) [place] % (Auto) Eos % (Auto) Baso % (Auto) Neut # Lymph # [place] # Eos # Baso # Neutrophils % (Manual) Lymphocytes % (Manual) Monocytes % (Manual) Platelet Estimate RBC Morphology PT INR APTT Sodium 135 Potassium 4.1 Chloride 99 Carbon Dioxide 24 Anion Gap 16 BUN 15 Creatinine 0.8 Est GFR ( Amer) > 60 Est GFR (Non-Af Amer) > 60 POC Glucose (mg/dL) 210 H Random Glucose 159 H Calcium 8.2 L Phosphorus 3.7 Magnesium 1.6 Total Bilirubin 0.8 AST 463 H D ALT 69 Alkaline Phosphatase 77 Total Creatine Kinase 1414 H CK-MB (Mass) 91.5 H Troponin I Troponin I, Quant 20.3000 H* Total Protein 6.2 L Albumin 3.1 L Globulin 3.1 Albumin/Globulin Ratio 1.0 Blood Type Antibody Screen 02/12/17 02/12/17 05:57 07:20 WBC 11.8 H D RBC 5.27 Hgb 15.6 Hct 47.8 MCV 90.6 MCH 29.6 MCHC 32.6 L RDW 13.9 Plt Count 231 MPV 8.1 Neut % (Auto) 85.7 H Lymph % (Auto) 7.6 L [place] % (Auto) 6.4 Eos % (Auto) 0.1 Baso % (Auto) 0.2 Neut # 10.2 H Lymph # 0.9 L [place] # 0.8 Eos # 0.0 Baso # 0.0 Neutrophils % (Manual) 86 H Lymphocytes % (Manual) 9 L Monocytes % (Manual) 5 Platelet Estimate Normal RBC Morphology Normal PT INR APTT Sodium Potassium Chloride Carbon Dioxide Anion Gap BUN Creatinine Est GFR ( Amer) Est GFR (Non-Af Amer) POC Glucose (mg/dL) 158 H Random Glucose Calcium Phosphorus Magnesium Total Bilirubin AST ALT Alkaline Phosphatase Total Creatine Kinase CK-MB (Mass) Troponin I Troponin I, Quant Total Protein Albumin Globulin Albumin/Globulin Ratio Blood Type Antibody Screen EKG/Cardiology Studies: Cardiology / EKG Studies 02/11/17 18:00 ELECTROCARDIOGRAM Q8H Comment: Mode Of Transportation: Reason For Exam: stemi 02/12/17 02:00 ELECTROCARDIOGRAM Q8H Comment: Mode Of Transportation: Reason For Exam: stemi 02/12/17 10:00 ELECTROCARDIOGRAM Q8H Comment: Mode Of Transportation: Reason For Exam: stemi Fingerstick Blood Sugar Results: 210 Review of Systems - Constitutional Constitutional: absent: Fever - EENT Eyes: absent: Change in Vision - Cardiovascular Cardiovascular: absent: Chest Pain, Dyspnea, Edema, Lightheadedness, Palpitations, Radiating Pain - Respiratory Respiratory: absent: Cough, Dyspnea - Gastrointestinal Gastrointestinal: absent: Abdominal Pain, Constipation, Diarrhea, Nausea, Vomiting - Genitourinary Genitourinary: absent: Dysuria - Neurological Neurological: absent: Dizziness, Numbness, Headaches, Other Visual Disturbances - Endocrine Endocrine: absent: Palpitations Critical Care Progress Note - Nutrition Nutrition: Nutrition Category Date Time Status Heart Healthy Diet [DIET] Diets 02/12/17 Breakfast Active Assessment/Plan - Assessment and Plan (Free Text) Assessment: 61 year old male with medical history of hypertension, diabetes, and hypercholesteremia, presents to the ED via ambulance after experiencing left arm numbness and pain, sweating and severe headache. EKG shows acute STEMI. Neuro: - Alert and oriented x3 Pulm: -Chest xray: mild to moderate venous congestion with right hilar prominence. CV: - EKG: Acute NC; ST elevations in V1-6 - Code Heart in ED - Cath: LCA 100% occluded; Mid RCA 60-70% occluded, Proximal RCA 20-30% occluded - ECHO: f/u - Started Integrelin drip-for 24hours and will finish at 5pm today, 02/12/17. - ROMIs: @16:15 <0.0120& @18:38 <0.104 - Troponin 02/12 at 1:21am: 20.3000 - Cardiology consulted- Dr. Claire, help appreciated - Brillinta 90mg PO BID, ASA 81mg PO daily, Coreg 3.125mg PO BID, Enalapril 2.5mg PO daily Endo: - Diabetes- Accucheck - Monitor blood glucose GI: -AST 18, ALT 24 - F/U AM labs Heme: - Monitor H/H Renal: - Monitor BUN/Cr Prophylaxis: - GI: Pepcid 20mg PO BID - Smoker: Nicoderm patch 21mg <Silvano Barroso - Last Filed: 02/12/17 18:14> CCU Objective - Vital Signs / Intake & Output Vital Signs (Last 4 hours): Vital Signs Pulse Resp BP Pulse Ox 02/12/17 16:02 78 26 H 108/70 96 02/12/17 15:50 81 25 H 96 02/12/17 15:02 80 25 H 120/85 96 Intake and Output (Last 8hrs): Intake & Output 02/12/17 02/12/17 02/12/17 06:59 14:59 22:59 Intake Total 40 240 160 Output Total 1150 1000 0 Balance -1110 -760 160 Intake: Intake, IV Amount 35 40 10 Right Antecubital 35 40 10 Oral 5 200 150 Output: Urine 1150 1000 0 Urine, Voided 1150 1000 0 Other: # Voids Urine, Voided 1 - Medications Active Medications: Active Medications Generic Name Dose Route Start Last Admin Trade Name Freq PRN Reason Stop Dose Admin Aspirin 81 mg 02/12/17 10:00 02/12/17 09:30 Aspirin Chewable PO 81 mg DAILY ARMANDO Administration Carvedilol 3.125 mg 02/11/17 18:00 02/12/17 09:29 Coreg PO 3.125 mg BID ARMANDO Administration Enalapril Maleate 2.5 mg 02/12/17 10:00 02/12/17 09:29 Vasotec PO 2.5 mg DAILY ARMANDO Administration Famotidine 20 mg 02/12/17 10:00 02/12/17 09:29 Pepcid PO 20 mg BID ARMANDO Administration Insulin Human Regular 0 unit 02/11/17 22:00 02/12/17 12:33 Novolin R SC Not Given ACHS ARMANDO Protocol Insulin Human Regular 0 unit 02/12/17 07:30 02/12/17 12:34 Novolin R SC Not Given ACHS ARMANDO Protocol Nicotine 1 patch 02/12/17 10:00 02/12/17 10:59 Nicoderm Cq TD 1 patch DAILY ARMANDO Administration Rosuvastatin Calcium 5 mg 02/11/17 22:00 02/11/17 21:12 Crestor PO 5 mg HS ARMANDO Administration Ticagrelor 90 mg 02/11/17 18:00 02/12/17 09:29 Brilinta PO 90 mg BID ARMANDO Administration - Patient Studies Lab Studies: Lab Studies 02/12/17 02/12/17 02/12/17 Range/Units 15:54 14:02 11:17 WBC (4.8-10.8) K/uL RBC (4.40-5.90) Mil/uL Hgb (12.0-18.0) g/dL Hct (35.0-51.0) % MCV (80.0-94.0) fL MCH (27.0-31.0) pg MCHC (33.0-37.0) g/dL RDW (11.5-14.5) % Plt Count (130-400) K/uL MPV (7.2-11.7) fL Neut % (Auto) (50.0-75.0) % Lymph % (Auto) (20.0-40.0) % [place] % (Auto) (0.0-10.0) % Eos % (Auto) (0.0-4.0) % Baso % (Auto) (0.0-2.0) % Neut # (1.8-7.0) K/uL Lymph # (1.0-4.3) K/uL [place] # (0.0-0.8) K/uL Eos # (0.0-0.7) K/uL Baso # (0.0-0.2) K/uL Neutrophils % (Manual) (50-75) % Lymphocytes % (Manual) (20-40) % Monocytes % (Manual) (0-10) % Platelet Estimate (NORMAL) RBC Morphology Sodium (132-148) mmol/L Potassium (3.6-5.2) mmol/L Chloride (98-107) mmol/L Carbon Dioxide (22-30) mmol/L Anion Gap (10-20) BUN (9-20) mg/dL Creatinine (0.8-1.5) MG/DL Est GFR ( Amer) Est GFR (Non-Af Amer) POC Glucose (mg/dL) 197 H 144 H (65-110) mg/dL Random Glucose (75-110) mg/dL Hemoglobin A1c 7.9 H D (4.2-6.5) % Calcium (8.6-10.4) mg/dl Phosphorus (2.5-4.5) mg/dL Magnesium (1.6-2.3) mg/dL Total Bilirubin (0.2-1.3) mg/dL AST (17-59) U/L ALT (21-72) U/L Alkaline Phosphatase (38-126) U/L Total Creatine Kinase (55-170) U/L CK-MB (Mass) (0.0-3.38) ng/mL Troponin I (0.00-0.120) ng/mL Troponin I, Quant (0.00-0.120) ng/mL Total Protein (6.3-8.3) g/dL Albumin (3.5-5.0) g/dL Globulin (2.2-3.9) gm/dL Albumin/Globulin Ratio (1.0-2.1) 02/12/17 02/12/17 02/12/17 Range/Units 11:03 07:20 05:57 WBC 11.8 H D (4.8-10.8) K/uL RBC 5.27 (4.40-5.90) Mil/uL Hgb 15.6 (12.0-18.0) g/dL Hct 47.8 (35.0-51.0) % MCV 90.6 (80.0-94.0) fL MCH 29.6 (27.0-31.0) pg MCHC 32.6 L (33.0-37.0) g/dL RDW 13.9 (11.5-14.5) % Plt Count 231 (130-400) K/uL MPV 8.1 (7.2-11.7) fL Neut % (Auto) 85.7 H (50.0-75.0) % Lymph % (Auto) 7.6 L (20.0-40.0) % [place] % (Auto) 6.4 (0.0-10.0) % Eos % (Auto) 0.1 (0.0-4.0) % Baso % (Auto) 0.2 (0.0-2.0) % Neut # 10.2 H (1.8-7.0) K/uL Lymph # 0.9 L (1.0-4.3) K/uL [place] # 0.8 (0.0-0.8) K/uL Eos # 0.0 (0.0-0.7) K/uL Baso # 0.0 (0.0-0.2) K/uL Neutrophils % (Manual) 86 H (50-75) % Lymphocytes % (Manual) 9 L (20-40) % Monocytes % (Manual) 5 (0-10) % Platelet Estimate Normal (NORMAL) RBC Morphology Normal Sodium (132-148) mmol/L Potassium (3.6-5.2) mmol/L Chloride (98-107) mmol/L Carbon Dioxide (22-30) mmol/L Anion Gap (10-20) BUN (9-20) mg/dL Creatinine (0.8-1.5) MG/DL Est GFR ( Amer) Est GFR (Non-Af Amer) POC Glucose (mg/dL) 158 H (65-110) mg/dL Random Glucose (75-110) mg/dL Hemoglobin A1c (4.2-6.5) % Calcium (8.6-10.4) mg/dl Phosphorus (2.5-4.5) mg/dL Magnesium (1.6-2.3) mg/dL Total Bilirubin (0.2-1.3) mg/dL AST (17-59) U/L ALT (21-72) U/L Alkaline Phosphatase (38-126) U/L Total Creatine Kinase (55-170) U/L CK-MB (Mass) (0.0-3.38) ng/mL Troponin I 107.0000 H* (0.00-0.120) ng/mL Troponin I, Quant (0.00-0.120) ng/mL Total Protein (6.3-8.3) g/dL Albumin (3.5-5.0) g/dL Globulin (2.2-3.9) gm/dL Albumin/Globulin Ratio (1.0-2.1) 02/12/17 02/12/17 02/11/17 Range/Units 05:57 01:51 21:31 WBC (4.8-10.8) K/uL RBC (4.40-5.90) Mil/uL Hgb (12.0-18.0) g/dL Hct (35.0-51.0) % MCV (80.0-94.0) fL MCH (27.0-31.0) pg MCHC (33.0-37.0) g/dL RDW (11.5-14.5) % Plt Count (130-400) K/uL MPV (7.2-11.7) fL Neut % (Auto) (50.0-75.0) % Lymph % (Auto) (20.0-40.0) % [place] % (Auto) (0.0-10.0) % Eos % (Auto) (0.0-4.0) % Baso % (Auto) (0.0-2.0) % Neut # (1.8-7.0) K/uL Lymph # (1.0-4.3) K/uL [place] # (0.0-0.8) K/uL Eos # (0.0-0.7) K/uL Baso # (0.0-0.2) K/uL Neutrophils % (Manual) (50-75) % Lymphocytes % (Manual) (20-40) % Monocytes % (Manual) (0-10) % Platelet Estimate (NORMAL) RBC Morphology Sodium 135 (132-148) mmol/L Potassium 4.1 (3.6-5.2) mmol/L Chloride 99 (98-107) mmol/L Carbon Dioxide 24 (22-30) mmol/L Anion Gap 16 (10-20) BUN 15 (9-20) mg/dL Creatinine 0.8 (0.8-1.5) MG/DL Est GFR ( Amer) > 60 Est GFR (Non-Af Amer) > 60 POC Glucose (mg/dL) 210 H (65-110) mg/dL Random Glucose 159 H (75-110) mg/dL Hemoglobin A1c (4.2-6.5) % Calcium 8.2 L (8.6-10.4) mg/dl Phosphorus 3.7 (2.5-4.5) mg/dL Magnesium 1.6 (1.6-2.3) mg/dL Total Bilirubin 0.8 (0.2-1.3) mg/dL AST 463 H D (17-59) U/L ALT 69 (21-72) U/L Alkaline Phosphatase 77 (38-126) U/L Total Creatine Kinase 1414 H (55-170) U/L CK-MB (Mass) 91.5 H (0.0-3.38) ng/mL Troponin I (0.00-0.120) ng/mL Troponin I, Quant 20.3000 H* (0.00-0.120) ng/mL Total Protein 6.2 L (6.3-8.3) g/dL Albumin 3.1 L (3.5-5.0) g/dL Globulin 3.1 (2.2-3.9) gm/dL Albumin/Globulin Ratio 1.0 (1.0-2.1) 02/11/17 Range/Units 18:38 WBC (4.8-10.8) K/uL RBC (4.40-5.90) Mil/uL Hgb (12.0-18.0) g/dL Hct (35.0-51.0) % MCV (80.0-94.0) fL MCH (27.0-31.0) pg MCHC (33.0-37.0) g/dL RDW (11.5-14.5) % Plt Count (130-400) K/uL MPV (7.2-11.7) fL Neut % (Auto) (50.0-75.0) % Lymph % (Auto) (20.0-40.0) % [place] % (Auto) (0.0-10.0) % Eos % (Auto) (0.0-4.0) % Baso % (Auto) (0.0-2.0) % Neut # (1.8-7.0) K/uL Lymph # (1.0-4.3) K/uL [place] # (0.0-0.8) K/uL Eos # (0.0-0.7) K/uL Baso # (0.0-0.2) K/uL Neutrophils % (Manual) (50-75) % Lymphocytes % (Manual) (20-40) % Monocytes % (Manual) (0-10) % Platelet Estimate (NORMAL) RBC Morphology Sodium (132-148) mmol/L Potassium (3.6-5.2) mmol/L Chloride (98-107) mmol/L Carbon Dioxide (22-30) mmol/L Anion Gap (10-20) BUN (9-20) mg/dL Creatinine (0.8-1.5) MG/DL Est GFR ( Amer) Est GFR (Non-Af Amer) POC Glucose (mg/dL) (65-110) mg/dL Random Glucose (75-110) mg/dL Hemoglobin A1c (4.2-6.5) % Calcium (8.6-10.4) mg/dl Phosphorus (2.5-4.5) mg/dL Magnesium (1.6-2.3) mg/dL Total Bilirubin (0.2-1.3) mg/dL AST (17-59) U/L ALT (21-72) U/L Alkaline Phosphatase (38-126) U/L Total Creatine Kinase (55-170) U/L CK-MB (Mass) (0.0-3.38) ng/mL Troponin I 0.1040 (0.00-0.120) ng/mL Troponin I, Quant (0.00-0.120) ng/mL Total Protein (6.3-8.3) g/dL Albumin (3.5-5.0) g/dL Globulin (2.2-3.9) gm/dL Albumin/Globulin Ratio (1.0-2.1) Laboratory Results - last 24 hr 02/11/17 02/11/17 02/12/17 18:38 21:31 01:51 WBC RBC Hgb Hct MCV MCH MCHC RDW Plt Count MPV Neut % (Auto) Lymph % (Auto) [place] % (Auto) Eos % (Auto) Baso % (Auto) Neut # Lymph # [place] # Eos # Baso # Neutrophils % (Manual) Lymphocytes % (Manual) Monocytes % (Manual) Platelet Estimate RBC Morphology Sodium Potassium Chloride Carbon Dioxide Anion Gap BUN Creatinine Est GFR ( Amer) Est GFR (Non-Af Amer) POC Glucose (mg/dL) 210 H Random Glucose Hemoglobin A1c Calcium Phosphorus Magnesium Total Bilirubin AST ALT Alkaline Phosphatase Total Creatine Kinase 1414 H CK-MB (Mass) 91.5 H Troponin I 0.1040 Troponin I, Quant 20.3000 H* Total Protein Albumin Globulin Albumin/Globulin Ratio 02/12/17 02/12/17 02/12/17 05:57 05:57 07:20 WBC 11.8 H D RBC 5.27 Hgb 15.6 Hct 47.8 MCV 90.6 MCH 29.6 MCHC 32.6 L RDW 13.9 Plt Count 231 MPV 8.1 Neut % (Auto) 85.7 H Lymph % (Auto) 7.6 L [place] % (Auto) 6.4 Eos % (Auto) 0.1 Baso % (Auto) 0.2 Neut # 10.2 H Lymph # 0.9 L [place] # 0.8 Eos # 0.0 Baso # 0.0 Neutrophils % (Manual) 86 H Lymphocytes % (Manual) 9 L Monocytes % (Manual) 5 Platelet Estimate Normal RBC Morphology Normal Sodium 135 Potassium 4.1 Chloride 99 Carbon Dioxide 24 Anion Gap 16 BUN 15 Creatinine 0.8 Est GFR ( Amer) > 60 Est GFR (Non-Af Amer) > 60 POC Glucose (mg/dL) 158 H Random Glucose 159 H Hemoglobin A1c Calcium 8.2 L Phosphorus 3.7 Magnesium 1.6 Total Bilirubin 0.8 AST 463 H D ALT 69 Alkaline Phosphatase 77 Total Creatine Kinase CK-MB (Mass) Troponin I Troponin I, Quant Total Protein 6.2 L Albumin 3.1 L Globulin 3.1 Albumin/Globulin Ratio 1.0 02/12/17 02/12/17 02/12/17 11:03 11:17 14:02 WBC RBC Hgb Hct MCV MCH MCHC RDW Plt Count MPV Neut % (Auto) Lymph % (Auto) [place] % (Auto) Eos % (Auto) Baso % (Auto) Neut # Lymph # [place] # Eos # Baso # Neutrophils % (Manual) Lymphocytes % (Manual) Monocytes % (Manual) Platelet Estimate RBC Morphology Sodium Potassium Chloride Carbon Dioxide Anion Gap BUN Creatinine Est GFR ( Amer) Est GFR (Non-Af Amer) POC Glucose (mg/dL) 144 H Random Glucose Hemoglobin A1c 7.9 H D Calcium Phosphorus Magnesium Total Bilirubin AST ALT Alkaline Phosphatase Total Creatine Kinase CK-MB (Mass) Troponin I 107.0000 H* Troponin I, Quant Total Protein Albumin Globulin Albumin/Globulin Ratio 02/12/17 15:54 WBC RBC Hgb Hct MCV MCH MCHC RDW Plt Count MPV Neut % (Auto) Lymph % (Auto) [place] % (Auto) Eos % (Auto) Baso % (Auto) Neut # Lymph # [place] # Eos # Baso # Neutrophils % (Manual) Lymphocytes % (Manual) Monocytes % (Manual) Platelet Estimate RBC Morphology Sodium Potassium Chloride Carbon Dioxide Anion Gap BUN Creatinine Est GFR ( Amer) Est GFR (Non-Af Amer) POC Glucose (mg/dL) 197 H Random Glucose Hemoglobin A1c Calcium Phosphorus Magnesium Total Bilirubin AST ALT Alkaline Phosphatase Total Creatine Kinase CK-MB (Mass) Troponin I Troponin I, Quant Total Protein Albumin Globulin Albumin/Globulin Ratio EKG/Cardiology Studies: Cardiology / EKG Studies 02/11/17 18:00 ELECTROCARDIOGRAM Q8H Comment: Mode Of Transportation: Reason For Exam: stemi 02/12/17 02:00 ELECTROCARDIOGRAM Q8H Comment: Mode Of Transportation: Reason For Exam: stem[employer] 02/12/17 10:00 ELECTROCARDIOGRAM Q8H Comment: Mode Of Transportation: Reason For Exam: stemi Critical Care Progress Note - Nutrition Nutrition: Nutrition Category Date Time Status Heart Healthy Diet [DIET] Diets 02/12/17 Breakfast Active Attending/Attestation - Attestation I have personally seen and examined this patient.: Yes I have fully participated in the care of the patient.: Yes I have reviewed all pertinent clinical information: Yes Notes (Text): 02/12/17 18:13 Patient seen and examined in the intensive care unit. Case discussed with staff in the morning rounds. Status post cardiac cath for ST elevation NC LCA 100% occluded; Mid RCA 60-70% occluded, Proximal RCA 20-30% occluded Continue anticoagulation as per cardiology Medical management for now
--- NOTE | 2017-02-12 12:41 | CARD ---
APPROVED REPORT EKG Measurement Heart [id number] [place] 124P42 [id number] <Conclusion> Normal sinus rhythm Anteroseptal infarct, possibly acute ACUTE [place] / STEMI Abnormal ECG
--- NOTE | 2017-02-12 12:41 | CARD ---
APPROVED REPORT EKG Measurement Heart [id number] 124P22 [id number] <Conclusion> Normal sinus rhythm Anteroseptal infarct, age undetermined Abnormal ECG
--- NOTE | 2017-02-12 18:10 | CP.PCM.CON ---
History of Present Illness - History of Present Illness History of Present Illness: Middle aged male with history of Diabetes who came with acute anterior wall myocardial infarction. Past Patient History - Past Medical History & Family History Past Medical History?: Yes - Past Social History Smoking Status: Never Smoked - CARDIAC Hx Cardiac Disorders: Yes Hx Hypercholesterolemia: Yes Hx Hypertension: Yes - PULMONARY Hx Respiratory Disorders: No - NEUROLOGICAL Hx Neurological Disorder: No - HEENT Hx HEENT Problems: Yes Other/Comment: eyglasses for driving - RENAL Hx Chronic Kidney Disease: No - ENDOCRINE/METABOLIC Hx Diabetes Mellitus Type 2: Yes - HEMATOLOGICAL/ONCOLOGICAL Hx Blood Disorders: No - INTEGUMENTARY Hx Dermatological Problems: No - MUSCULOSKELETAL/RHEUMATOLOGICAL Hx Falls: No - GASTROINTESTINAL Hx Gastrointestinal Disorders: No - GENITOURINARY/GYNECOLOGICAL Hx Genitourinary Disorders: No - PSYCHIATRIC Hx Substance Use: No - SURGICAL HISTORY Hx Surgeries: No - ANESTHESIA Hx Anesthesia: No Hx Anesthesia Reactions: No Hx Malignant Hyperthermia: No Meds Allergies/Adverse Reactions: Allergies Allergy/AdvReac Type Severity Reaction Status Date / Time No Known Allergies Allergy Unverified 02/11/17 16:04 - Medications Medications: Current Medications Aspirin (Aspirin Chewable) 81 mg PO DAILY [facility] Last Admin: 02/12/17 09:30 Dose: 81 mg Carvedilol (Coreg) 3.125 mg PO BID [facility] Last Admin: 02/12/17 09:29 Dose: 3.125 mg Enalapril Maleate (Vasotec) 2.5 mg PO DAILY [facility] Last Admin: 02/12/17 09:29 Dose: 2.5 mg Famotidine (Pepcid) 20 mg PO BID [facility] Last Admin: 02/12/17 09:29 Dose: 20 mg Insulin Human Regular (Novolin R) 0 unit SC [facility] PRN Reason: Protocol Last Admin: 02/12/17 12:33 Dose: Not Given Insulin Human Regular (Novolin R) 0 unit SC [facility] PRN Reason: Protocol Last Admin: 02/12/17 12:34 Dose: Not Given Nicotine (Nicoderm Cq) 1 patch TD DAILY [facility] Last Admin: 02/12/17 10:59 Dose: 1 patch Rosuvastatin Calcium (Crestor) 5 mg PO HS [facility] Last Admin: 02/11/17 21:12 Dose: 5 mg Ticagrelor (Brilinta) 90 mg PO BID [facility] Last Admin: 02/12/17 09:29 Dose: 90 mg Physical Exam - Head Exam Head Exam: NORMOCEPHALIC - Neck Exam Neck exam: Positive for: Normal Inspection - Respiratory Exam Respiratory Exam: NORMAL BREATHING PATTERN - Cardiovascular Exam Cardiovascular Exam: REGULAR RHYTHM - Extremities Exam Extremities exam: Positive for: normal inspection - Neurological Exam Neurological exam: Alert, Oriented x3 Results - Vital Signs Recent Vital Signs: Last Vital Signs Temp 98.6 F 02/12/17 13:00 Pulse 78 02/12/17 16:02 Resp 26 H 02/12/17 16:02 BP 108/70 02/12/17 16:02 Pulse Ox 96 02/12/17 16:02 - Labs Result Diagrams: 02/13/17 06:23 02/13/17 06:21 Labs: Laboratory Results - last 24 hr 02/11/17 02/11/17 02/12/17 18:38 21:31 01:51 WBC RBC Hgb Hct MCV MCH MCHC RDW Plt Count MPV Neut % (Auto) Lymph % (Auto) [place] % (Auto) Eos % (Auto) Baso % (Auto) Neut # Lymph # [place] # Eos # Baso # Neutrophils % (Manual) Lymphocytes % (Manual) Monocytes % (Manual) Platelet Estimate RBC Morphology Sodium Potassium Chloride Carbon Dioxide Anion Gap BUN Creatinine Est GFR ( Amer) Est GFR (Non-Af Amer) POC Glucose (mg/dL) 210 H Random Glucose Hemoglobin A1c Calcium Phosphorus Magnesium Total Bilirubin AST ALT Alkaline Phosphatase Total Creatine Kinase 1414 H CK-MB (Mass) 91.5 H Troponin I 0.1040 Troponin I, Quant 20.3000 H* Total Protein Albumin Globulin Albumin/Globulin Ratio 02/12/17 02/12/17 02/12/17 05:57 05:57 07:20 WBC 11.8 H D RBC 5.27 Hgb 15.6 Hct 47.8 MCV 90.6 MCH 29.6 MCHC 32.6 L RDW 13.9 Plt Count 231 MPV 8.1 Neut % (Auto) 85.7 H Lymph % (Auto) 7.6 L [place] % (Auto) 6.4 Eos % (Auto) 0.1 Baso % (Auto) 0.2 Neut # 10.2 H Lymph # 0.9 L [place] # 0.8 Eos # 0.0 Baso # 0.0 Neutrophils % (Manual) 86 H Lymphocytes % (Manual) 9 L Monocytes % (Manual) 5 Platelet Estimate Normal RBC Morphology Normal Sodium 135 Potassium 4.1 Chloride 99 Carbon Dioxide 24 Anion Gap 16 BUN 15 Creatinine 0.8 Est GFR ( Amer) > 60 Est GFR (Non-Af Amer) > 60 POC Glucose (mg/dL) 158 H Random Glucose 159 H Hemoglobin A1c Calcium 8.2 L Phosphorus 3.7 Magnesium 1.6 Total Bilirubin 0.8 AST 463 H D ALT 69 Alkaline Phosphatase 77 Total Creatine Kinase CK-MB (Mass) Troponin I Troponin I, Quant Total Protein 6.2 L Albumin 3.1 L Globulin 3.1 Albumin/Globulin Ratio 1.0 02/12/17 02/12/17 02/12/17 11:03 11:17 14:02 WBC RBC Hgb Hct MCV MCH MCHC RDW Plt Count MPV Neut % (Auto) Lymph % (Auto) [place] % (Auto) Eos % (Auto) Baso % (Auto) Neut # Lymph # [place] # Eos # Baso # Neutrophils % (Manual) Lymphocytes % (Manual) Monocytes % (Manual) Platelet Estimate RBC Morphology Sodium Potassium Chloride Carbon Dioxide Anion Gap BUN Creatinine Est GFR ( Amer) Est GFR (Non-Af Amer) POC Glucose (mg/dL) 144 H Random Glucose Hemoglobin A1c 7.9 H D Calcium Phosphorus Magnesium Total Bilirubin AST ALT Alkaline Phosphatase Total Creatine Kinase CK-MB (Mass) Troponin I 107.0000 H* Troponin I, Quant Total Protein Albumin Globulin Albumin/Globulin Ratio 02/12/17 15:54 WBC RBC Hgb Hct MCV MCH MCHC RDW Plt Count MPV Neut % (Auto) Lymph % (Auto) [place] % (Auto) Eos % (Auto) Baso % (Auto) Neut # Lymph # [place] # Eos # Baso # Neutrophils % (Manual) Lymphocytes % (Manual) Monocytes % (Manual) Platelet Estimate RBC Morphology Sodium Potassium Chloride Carbon Dioxide Anion Gap BUN Creatinine Est GFR ( Amer) Est GFR (Non-Af Amer) POC Glucose (mg/dL) 197 H Random Glucose Hemoglobin A1c Calcium Phosphorus Magnesium Total Bilirubin AST ALT Alkaline Phosphatase Total Creatine Kinase CK-MB (Mass) Troponin I Troponin I, Quant Total Protein Albumin Globulin Albumin/Globulin Ratio Assessment & Plan (1) Acute myocardial infarction Assessment and Plan: S/P acute anterior wall Myocardial infarction. DAPT. and ACS protocol. Status: Acute (2) Hypercholesteremia Assessment and Plan: Lipid lowering agents. Status: Acute (3) Hypertension Assessment and Plan: B P controlled, continue current care. Status: Acute - Date & Time Date: 02/12/17 Time: 18:08
--- NOTE | 2017-02-12 18:38 | CARD ---
APPROVED REPORT EXAM: Two-dimensional and M-mode echocardiogram with Doppler and color Doppler. Other Information Quality : GoodRhythm : INDICATION Status/Post GA 2D DIMENSIONS IVSd1.3 (0.7-1.1cm)LVDd4.2 (3.9-5.9cm) PWd0.7 (0.7-1.1cm)IVSs1.2 (0.8-1.2cm) LVDs2.5 (2.5-4.0cm)FS (%) 40.1 % PWs1.2 (0.8-1.2cm)LVEF (%)40.0 (>50%) M-Mode DIMENSIONS RVDd1.37 (2.1-3.2cm)Left Atrium (MM)3.89 (2.5-4.0cm) IVSd0.82 (0.7-1.1cm)Aortic Root3.19 (2.2-3.7cm) LVDd4.59 (4.0-5.6cm)Aortic Cusp Exc.1.88 (1.5-2.0cm) PWd0.94 (0.7-1.1cm)LVDs3.07 (2.0-3.8cm) Aortic Valve AoV Peak Auegxmhr72.0cm/sAoV VTI16.2cmAO Peak GR.3mmHg LVOT Peak Yjzebpfh29.3cm/[place] Mean GR.2mmHg Mitral Valve MV E Qdlaoywt05.0cm/sMV A Ulbsybfk94.7cm/sE/A ratio0.8 TDI E/Lateral E'0.0E/Medial E'0.0 Pulmonary Valve PV Peak Dpwwlehm19.1cm/sPV Peak Grad.4mmHg Tricuspid Valve TR Peak Hwbvtdkb871fe/sTR Peak Gr.43fxGkPBLO32tmZe LEFT VENTRICLE The left ventricle is normal size. There is borderline concentric left ventricular hypertrophy. The systolic function is mildly to moderately impaired. The Ejection Fraction is 40-45%. Hypokinesia - akinesia of the anteroapical wall compatible with coronary heart disease / myocardial infarct. Transmitral Doppler flow pattern is Grade I-abnormal relaxation pattern. No left ventricle thrombus noted on this study. RIGHT VENTRICLE The right ventricle is normal size. The right ventricular systolic function is normal. ATRIA The left atrium size is normal. The right atrium size is normal. AORTIC VALVE The aortic valve is normal in structure. No aortic regurgitation is present. MITRAL VALVE The mitral valve is normal in structure. There is no mitral valve regurgitation noted. TRICUSPID VALVE The tricuspid valve is normal in structure. PULMONIC VALVE The pulmonary valve is normal in structure. GREAT VESSELS The aortic root displays mild to moderate sclerocalcific changes. The IVC is normal in size and collapses >50% with inspiration. PERICARDIAL EFFUSION There is no pericardial effusion. <Conclusion> Hypokinesia - akinesia of the anteroapical wall of the left ventricle compatible with coronary heart disease / myocardial infarct. The systolic function is mildly to moderately impaired. The Ejection Fraction is 40-45%. Transmitral Doppler flow pattern is Grade I-abnormal relaxation pattern. The right ventricular systolic function is normal. No gross valvular abnormality. There is no pericardial effusion.
--- NOTE | 2017-02-12 18:51 | CARD ---
APPROVED REPORT EKG Measurement Heart [id number] 128P36 [id number] <Conclusion> Sinus bradycardia ST elevation, consider anterolateral injury or acute infarct ACUTE VT / STEMI Abnormal ECG
--- NOTE | 2017-02-12 18:51 | CARD ---
APPROVED REPORT EKG Measurement Heart [id number] [place] 122P2 [id number] <Conclusion> Normal sinus rhythm Anteroseptal infarct, possibly acute ACUTE TX / STEMI Abnormal ECG
[2017-02-13 06:32] LABS: BASO % 0.3 % (0.0-2.0); EOS % 0.2 % (0.0-4.0); HEMOGLOBIN 15.9 g/dL (12.0-18.0); LYMPH # 1.1 K/uL (1.0-4.3); LYMPH % 10.8 % (20.0-40.0); MEAN CELL VOLUME 88.9 fL (80.0-94.0); MEAN CORPUSCULAR HEMOGLOBIN 29.5 pg (27.0-31.0); MEAN CORPUSCULAR HGB CONC 33.2 g/dL (33.0-37.0); MEAN PLATELET VOLUME 7.9 fL (7.2-11.7); MONO # 1.6 K/uL (0.0-0.8); MONO % 16.4 % (0.0-10.0); NEUT # 7.2 K/uL (1.8-7.0); NEUT % 72.3 % (50.0-75.0); RBC 5.39 Mil/uL (4.40-5.90); RED CELL DISTRIBUTION WIDTH 13.8 % (11.5-14.5)
[2017-02-13 06:35] LABS: ALBUMIN 2.9 g/dL (3.5-5.0)
[2017-02-13 06:38] LABS: GFR AFRICAN-AMERICAN > 60; GFR NON-AFRICAN AMERICAN > 60
[2017-02-13 06:39] LABS: ALT/SGPT 69 U/L (21-72); AST/SGOT 186 U/L (17-59); BLOOD UREA NITROGEN 13 mg/dL (9-20)
[2017-02-13 06:40] LABS: CALCIUM 7.9 mg/dl (8.6-10.4); HDL CHOLESTEROL 41 mg/dL (30-70); MAGNESIUM 1.6 mg/dL (1.6-2.3)
[2017-02-13 06:50] LABS: LDL CHOLESTEROL 83 mg/dL (0-129)
[2017-02-13] MEDS: (Novolin R) Insulin Human Regular 100 units/ml vial SC SCH ×4 (08:27→21:19)
[2017-02-13] MEDS: Magnesium Sulfate 1 gm in D5W 1 GM/100 ML BAG IVPB SCH ×2 (10:01→10:02)
--- NOTE | 2017-02-13 10:20 | CP.CCUPN ---
<Hailey Suresh - Last Filed: 02/13/17 10:18> CCU Subjective - Physician Review Subjective (Free Text): Patient was seen and examined at bedside in no acute distress this morning. Patient has no complaints. Patient denies chest pain, palpitations, shortness of breath, abdominal pain, leg pain, dizziness, diarrhea, constipation, nausea, and vomiting. Patient is stable for transfer to telemetry. 02/13/17 10:18 CCU Objective - Vital Signs / Intake & Output Vital Signs (Last 4 hours): Vital Signs Temp Pulse Resp BP Pulse Ox 02/13/17 10:00 102/63 02/13/17 08:02 97 H 36 H 103/65 96 02/13/17 08:00 98.4 F 100 H 35 H 96 02/13/17 07:02 98 H 23 108/77 95 Intake and Output (Last 8hrs): Intake & Output 02/12/17 02/13/17 02/13/17 22:59 06:59 14:59 Intake Total 465 Output Total 350 500 Balance 115 -500 Intake: Intake, IV Amount 15 Right Antecubital 15 Oral 450 Output: Urine 350 500 Urine, Voided 350 500 Other: # Voids Urine, Voided 1 - Physical Exam Head: Positive for: Atraumatic, Normocephalic Extroacular Muscles: Positive for: EOMI Mouth: Positive for: Moist Mucous Membranes Neck: Positive for: Normal Range of Motion Respiratory/Chest: Positive for: Clear to Auscultation. Negative for: Wheezes, Rhonchi Cardiovascular: Positive for: Regular Rate and Rhythm, Normal S1, S2 Abdomen: Positive for: Normal Bowel Sounds. Negative for: Tenderness Upper Extremity: Positive for: Normal Inspection. Negative for: Edema Lower Extremity: Positive for: Normal Inspection, NORMAL PULSES. Negative for: Edema Skin: Positive for: Warm, Dry, Normal Color. Negative for: Rashes, Diaphoretic Psychiatric: Positive for: Alert, Oriented x 3 - Medications Active Medications: Active Medications Generic Name Dose Route Start Last Admin Trade Name Freq PRN Reason Stop Dose Admin Aspirin 81 mg 02/12/17 10:00 02/13/17 10:01 Aspirin Chewable PO 81 mg DAILY ARMANDO Administration Carvedilol 3.125 mg 02/11/17 18:00 02/13/17 10:01 Coreg PO 3.125 mg BID ARMANDO Administration Enalapril Maleate 2.5 mg 02/12/17 10:00 02/13/17 10:00 Vasotec PO 2.5 mg DAILY ARMANDO Administration Famotidine 20 mg 02/12/17 10:00 02/13/17 10:01 Pepcid PO 20 mg BID ARMANDO Administration Magnesium Sulfate/Dextrose 1 gm in 100 mls @ 300 mls/hr 02/13/17 09:30 10:02 Magnesium Sulfate 1 Gm/100 Ml D5w IVPB 02/13/17 10:19 300 mls/hr Q30M ARMANDO Administration Insulin Human Regular 0 unit 02/12/17 07:30 02/13/17 08:27 Novolin R SC 2 unit ACHS ARMANDO Administration Protocol Nicotine 1 patch 02/12/17 10:00 02/13/17 10:04 Nicoderm Cq TD 1 patch DAILY ARMANDO Administration Rosuvastatin Calcium 5 mg 02/11/17 22:00 02/12/17 21:38 Crestor PO 5 mg HS ARMANDO Administration Ticagrelor 90 mg 02/11/17 18:00 02/13/17 10:01 Brilinta PO 90 mg BID ARMANDO Administration - Patient Studies Lab Studies: Microbiology Studies 02/11/17 19:00 MRSA Culture (Admit) - Final Nose MRSA NOT DETECTED Lab Studies 02/13/17 02/13/17 02/13/17 Range/Units 07:41 06:23 06:21 WBC 10.0 (4.8-10.8) K/uL RBC 5.39 (4.40-5.90) Mil/uL Hgb 15.9 (12.0-18.0) g/dL Hct 47.9 (35.0-51.0) % MCV 88.9 (80.0-94.0) fL MCH 29.5 (27.0-31.0) pg MCHC 33.2 (33.0-37.0) g/dL RDW 13.8 (11.5-14.5) % Plt Count 249 (130-400) K/uL MPV 7.9 (7.2-11.7) fL Neut % (Auto) 72.3 (50.0-75.0) % Lymph % (Auto) 10.8 L (20.0-40.0) % [place] % (Auto) 16.4 H (0.0-10.0) % Eos % (Auto) 0.2 (0.0-4.0) % Baso % (Auto) 0.3 (0.0-2.0) % Neut # 7.2 H (1.8-7.0) K/uL Lymph # 1.1 (1.0-4.3) K/uL [place] # 1.6 H (0.0-0.8) K/uL Eos # 0.0 (0.0-0.7) K/uL Baso # 0.0 (0.0-0.2) K/uL Sodium 135 (132-148) mmol/L Potassium 3.7 (3.6-5.2) mmol/L Chloride 97 L (98-107) mmol/L Carbon Dioxide 30 (22-30) mmol/L Anion Gap 11 (10-20) BUN 13 (9-20) mg/dL Creatinine 1.0 (0.8-1.5) MG/DL Est GFR ( Amer) > 60 Est GFR (Non-Af Amer) > 60 POC Glucose (mg/dL) 153 H (65-110) mg/dL Random Glucose 169 H (75-110) mg/dL Hemoglobin A1c (4.2-6.5) % Calcium 7.9 L (8.6-10.4) mg/dl Phosphorus 2.8 (2.5-4.5) mg/dL Magnesium 1.6 (1.6-2.3) mg/dL Total Bilirubin 0.9 (0.2-1.3) mg/dL AST 186 H D (17-59) U/L ALT 69 (21-72) U/L Alkaline Phosphatase 73 (38-126) U/L Troponin I (0.00-0.120) ng/mL Total Protein 5.7 L (6.3-8.3) g/dL Albumin 2.9 L (3.5-5.0) g/dL Globulin 2.8 (2.2-3.9) gm/dL Albumin/Globulin Ratio 1.0 (1.0-2.1) Triglycerides 131 (0-149) mg/dL Cholesterol 152 (0-199) mg/dL LDL Cholesterol Direct 83 (0-129) mg/dL HDL Cholesterol 41 (30-70) mg/dL 02/12/17 02/12/17 02/12/17 Range/Units 21:05 15:54 14:02 WBC (4.8-10.8) K/uL RBC (4.40-5.90) Mil/uL Hgb (12.0-18.0) g/dL Hct (35.0-51.0) % MCV (80.0-94.0) fL MCH (27.0-31.0) pg MCHC (33.0-37.0) g/dL RDW (11.5-14.5) % Plt Count (130-400) K/uL MPV (7.2-11.7) fL Neut % (Auto) (50.0-75.0) % Lymph % (Auto) (20.0-40.0) % [place] % (Auto) (0.0-10.0) % Eos % (Auto) (0.0-4.0) % Baso % (Auto) (0.0-2.0) % Neut # (1.8-7.0) K/uL Lymph # (1.0-4.3) K/uL [place] # (0.0-0.8) K/uL Eos # (0.0-0.7) K/uL Baso # (0.0-0.2) K/uL Sodium (132-148) mmol/L Potassium (3.6-5.2) mmol/L Chloride (98-107) mmol/L Carbon Dioxide (22-30) mmol/L Anion Gap (10-20) BUN (9-20) mg/dL Creatinine (0.8-1.5) MG/DL Est GFR ( Amer) Est GFR (Non-Af Amer) POC Glucose (mg/dL) 165 H 197 H (65-110) mg/dL Random Glucose (75-110) mg/dL Hemoglobin A1c 7.9 H D (4.2-6.5) % Calcium (8.6-10.4) mg/dl Phosphorus (2.5-4.5) mg/dL Magnesium (1.6-2.3) mg/dL Total Bilirubin (0.2-1.3) mg/dL AST (17-59) U/L ALT (21-72) U/L Alkaline Phosphatase (38-126) U/L Troponin I (0.00-0.120) ng/mL Total Protein (6.3-8.3) g/dL Albumin (3.5-5.0) g/dL Globulin (2.2-3.9) gm/dL Albumin/Globulin Ratio (1.0-2.1) Triglycerides (0-149) mg/dL Cholesterol (0-199) mg/dL LDL Cholesterol Direct (0-129) mg/dL HDL Cholesterol (30-70) mg/dL 02/12/17 02/12/17 Range/Units 11:17 11:03 WBC (4.8-10.8) K/uL RBC (4.40-5.90) Mil/uL Hgb (12.0-18.0) g/dL Hct (35.0-51.0) % MCV (80.0-94.0) fL MCH (27.0-31.0) pg MCHC (33.0-37.0) g/dL RDW (11.5-14.5) % Plt Count (130-400) K/uL MPV (7.2-11.7) fL Neut % (Auto) (50.0-75.0) % Lymph % (Auto) (20.0-40.0) % [place] % (Auto) (0.0-10.0) % Eos % (Auto) (0.0-4.0) % Baso % (Auto) (0.0-2.0) % Neut # (1.8-7.0) K/uL Lymph # (1.0-4.3) K/uL [place] # (0.0-0.8) K/uL Eos # (0.0-0.7) K/uL Baso # (0.0-0.2) K/uL Sodium (132-148) mmol/L Potassium (3.6-5.2) mmol/L Chloride (98-107) mmol/L Carbon Dioxide (22-30) mmol/L Anion Gap (10-20) BUN (9-20) mg/dL Creatinine (0.8-1.5) MG/DL Est GFR ( Amer) Est GFR (Non-Af Amer) POC Glucose (mg/dL) 144 H (65-110) mg/dL Random Glucose (75-110) mg/dL Hemoglobin A1c (4.2-6.5) % Calcium (8.6-10.4) mg/dl Phosphorus (2.5-4.5) mg/dL Magnesium (1.6-2.3) mg/dL Total Bilirubin (0.2-1.3) mg/dL AST (17-59) U/L ALT (21-72) U/L Alkaline Phosphatase (38-126) U/L Troponin I 107.0000 H* (0.00-0.120) ng/mL Total Protein (6.3-8.3) g/dL Albumin (3.5-5.0) g/dL Globulin (2.2-3.9) gm/dL Albumin/Globulin Ratio (1.0-2.1) Triglycerides (0-149) mg/dL Cholesterol (0-199) mg/dL LDL Cholesterol Direct (0-129) mg/dL HDL Cholesterol (30-70) mg/dL Laboratory Results - last 24 hr 02/12/17 02/12/17 02/12/17 11:03 11:17 14:02 WBC RBC Hgb Hct MCV MCH MCHC RDW Plt Count MPV Neut % (Auto) Lymph % (Auto) [place] % (Auto) Eos % (Auto) Baso % (Auto) Neut # Lymph # [place] # Eos # Baso # Sodium Potassium Chloride Carbon Dioxide Anion Gap BUN Creatinine Est GFR ( Amer) Est GFR (Non-Af Amer) POC Glucose (mg/dL) 144 H Random Glucose Hemoglobin A1c 7.9 H D Calcium Phosphorus Magnesium Total Bilirubin AST ALT Alkaline Phosphatase Troponin I 107.0000 H* Total Protein Albumin Globulin Albumin/Globulin Ratio Triglycerides Cholesterol LDL Cholesterol Direct HDL Cholesterol 02/12/17 02/12/17 02/13/17 15:54 21:05 06:21 WBC RBC Hgb Hct MCV MCH MCHC RDW Plt Count MPV Neut % (Auto) Lymph % (Auto) [place] % (Auto) Eos % (Auto) Baso % (Auto) Neut # Lymph # [place] # Eos # Baso # Sodium 135 Potassium 3.7 Chloride 97 L Carbon Dioxide 30 Anion Gap 11 BUN 13 Creatinine 1.0 Est GFR ( Amer) > 60 Est GFR (Non-Af Amer) > 60 POC Glucose (mg/dL) 197 H 165 H Random Glucose 169 H Hemoglobin A1c Calcium 7.9 L Phosphorus 2.8 Magnesium 1.6 Total Bilirubin 0.9 AST 186 H D ALT 69 Alkaline Phosphatase 73 Troponin I Total Protein 5.7 L Albumin 2.9 L Globulin 2.8 Albumin/Globulin Ratio 1.0 Triglycerides 131 Cholesterol 152 LDL Cholesterol Direct 83 HDL Cholesterol 41 02/13/17 02/13/17 06:23 07:41 WBC 10.0 RBC 5.39 Hgb 15.9 Hct 47.9 MCV 88.9 MCH 29.5 MCHC 33.2 RDW 13.8 Plt Count 249 MPV 7.9 Neut % (Auto) 72.3 Lymph % (Auto) 10.8 L [place] % (Auto) 16.4 H Eos % (Auto) 0.2 Baso % (Auto) 0.3 Neut # 7.2 H Lymph # 1.1 [place] # 1.6 H Eos # 0.0 Baso # 0.0 Sodium Potassium Chloride Carbon Dioxide Anion Gap BUN Creatinine Est GFR ( Amer) Est GFR (Non-Af Amer) POC Glucose (mg/dL) 153 H Random Glucose Hemoglobin A1c Calcium Phosphorus Magnesium Total Bilirubin AST ALT Alkaline Phosphatase Troponin I Total Protein Albumin Globulin Albumin/Globulin Ratio Triglycerides Cholesterol LDL Cholesterol Direct HDL Cholesterol EKG/Cardiology Studies: Cardiology / EKG Studies 02/12/17 10:00 ELECTROCARDIOGRAM Q8H Comment: Mode Of Transportation: Reason For Exam: stemi Fingerstick Blood Sugar Results: 165 Review of Systems - EENT Ears: absent: Dizziness - Cardiovascular Cardiovascular: absent: Chest Pain, Dyspnea, Edema, Lightheadedness, Palpitations - Respiratory Respiratory: absent: Cough, Dyspnea - Gastrointestinal Gastrointestinal: absent: Abdominal Pain, Constipation, Diarrhea, Nausea, Vomiting - Genitourinary Genitourinary: absent: Dysuria - Neurological Neurological: absent: Dizziness - Endocrine Endocrine: absent: Palpitations Critical Care Progress Note - Nutrition Nutrition: Nutrition Category Date Time Status Heart Healthy Diet [DIET] Diets 02/12/17 Breakfast Active Assessment/Plan (1) STEMI (ST elevation myocardial infarction) Current Visit: Yes Status: Acute (2) Diabetes Current Visit: Yes Status: Acute (3) Hypertension Current Visit: Yes Status: Acute (4) Hypercholesteremia Current Visit: Yes Status: Acute (5) Tobacco abuse Current Visit: Yes Status: Acute (6) Prophylactic measure Current Visit: Yes Status: Acute - Assessment and Plan (Free Text) Assessment: 61 year old male with medical history of hypertension, diabetes, and hypercholesteremia, presents to the ED via ambulance after experiencing left arm numbness and pain, sweating and severe headache. EKG shows acute STEMI. Patient is stable for transfer to telemetry. Neuro: - Alert and oriented x3 Pulm: -Chest xray (02/12): mild to moderate venous congestion with right hilar prominence. CV: - EKG: Acute MD; ST elevations in V1-6 - Code Heart in ED - Cath: LCA 100% occluded; Mid RCA 60-70% occluded, Proximal RCA 20-30% occluded - ECHO: hypokinesia-akinesia of anteroapical wall of LV compatible with coronary heart disease/MD; systolic function mildly-moderately impaired; EF 40- 45%; grade I abnormal relaxation pattern.RV function is normal; no valvular abnormality or peridcardial effusion. - ROMIs: @16:15 <0.0120& @18:38 <0.104 - Troponin 02/12 at 1:21am: 20.3000 - Cardiology consulted- Dr. Claire, help appreciated - Discontinued Integrelin drip-at 5pm on 02/12/17. - Brillinta 90mg PO BID, ASA 81mg PO daily, Coreg 3.125mg PO BID, Enalapril 2.5mg PO daily - Lovenox 40mg SC daily started 02/13 Endo: - Diabetes- Accucheck - Monitor blood glucose GI: - AST 18, ALT 24 - AST 463 on 02/12, likely 2/2 to acute phase reaction - AST 186 on 02/13 - Monitor Heme: - Monitor H/H Renal: - Monitor BUN/Cr Prophylaxis: - GI: Pepcid 20mg PO BID - Smoker: Nicoderm patch 21mg <Silvano Barroso S - Last Filed: 02/13/17 17:28> CCU Objective - Vital Signs / Intake & Output Vital Signs (Last 4 hours): Vital Signs Temp Pulse Resp BP Pulse Ox 02/13/17 17:02 105 H 45 H 103/66 97 02/13/17 17:00 107 H 29 H 97 02/13/17 16:02 93 H 44 H 99/69 L 94 L 02/13/17 16:00 98.3 F 97 H 33 H 93 L 02/13/17 15:02 96 H 24 112/80 93 L 02/13/17 15:00 95 H 32 H 95 02/13/17 14:03 96 H 29 H 113/78 95 02/13/17 14:00 93 H 44 H 94 L Intake and Output (Last 8hrs): Intake & Output 02/13/17 02/13/17 02/13/17 06:59 14:59 22:59 Intake Total 200 70 Output Total 500 400 Balance -500 200 -330 Intake: Intake, IV Amount 200 70 Right Antecubital 200 70 Output: Urine 500 400 Urine, Voided 500 400 - Medications Active Medications: Active Medications Generic Name Dose Route Start Last Admin Trade Name Freq PRN Reason Stop Dose Admin Aspirin 81 mg 02/12/17 10:00 02/13/17 10:01 Aspirin Chewable PO 81 mg DAILY ARMANDO Administration Carvedilol 3.125 mg 02/11/17 18:00 02/13/17 17:08 Coreg PO 3.125 mg BID ARMANDO Administration Enalapril Maleate 2.5 mg 02/12/17 10:00 02/13/17 10:00 Vasotec PO 2.5 mg DAILY ARMANDO Administration Enoxaparin Sodium 40 mg 02/13/17 10:30 02/13/17 10:26 Lovenox SC 40 mg DAILY ARMANDO Administration Famotidine 20 mg 02/12/17 10:00 02/13/17 17:08 Pepcid PO 20 mg BID ARMANDO Administration Sodium Chloride 1,000 mls @ 75 mls/hr 02/13/17 15:45 02/13/17 16:01 Sodium Chloride 0.45% IV 02/14/17 06:00 75 mls/hr .[id number] ARMANDO Administration Insulin Human Regular 0 unit 02/12/17 07:30 02/13/17 17:07 Novolin R SC 2 unit ACHS ARMANDO Administration Protocol Nicotine 1 patch 02/12/17 10:00 02/13/17 10:04 Nicoderm Cq TD 1 patch DAILY ARMANDO Administration Rosuvastatin Calcium 5 mg 02/11/17 22:00 02/12/17 21:38 Crestor PO 5 mg HS ARMANDO Administration Ticagrelor 90 mg 02/11/17 18:00 02/13/17 17:08 Brilinta PO 90 mg BID ARMANDO Administration - Patient Studies Lab Studies: Microbiology Studies 02/11/17 19:00 MRSA Culture (Admit) - Final Nose MRSA NOT DETECTED Lab Studies 02/13/17 02/13/17 02/13/17 Range/Units 16:17 11:40 07:41 WBC (4.8-10.8) K/uL RBC (4.40-5.90) Mil/uL Hgb (12.0-18.0) g/dL Hct (35.0-51.0) % MCV (80.0-94.0) fL MCH (27.0-31.0) pg MCHC (33.0-37.0) g/dL RDW (11.5-14.5) % Plt Count (130-400) K/uL MPV (7.2-11.7) fL Neut % (Auto) (50.0-75.0) % Lymph % (Auto) (20.0-40.0) % [place] % (Auto) (0.0-10.0) % Eos % (Auto) (0.0-4.0) % Baso % (Auto) (0.0-2.0) % Neut # (1.8-7.0) K/uL Lymph # (1.0-4.3) K/uL [place] # (0.0-0.8) K/uL Eos # (0.0-0.7) K/uL Baso # (0.0-0.2) K/uL Sodium (132-148) mmol/L Potassium (3.6-5.2) mmol/L Chloride (98-107) mmol/L Carbon Dioxide (22-30) mmol/L Anion Gap (10-20) BUN (9-20) mg/dL Creatinine (0.8-1.5) MG/DL Est GFR ( Amer) Est GFR (Non-Af Amer) POC Glucose (mg/dL) 156 H 252 H 153 H (65-110) mg/dL Random Glucose (75-110) mg/dL Calcium (8.6-10.4) mg/dl Phosphorus (2.5-4.5) mg/dL Magnesium (1.6-2.3) mg/dL Total Bilirubin (0.2-1.3) mg/dL AST (17-59) U/L ALT (21-72) U/L Alkaline Phosphatase (38-126) U/L Total Protein (6.3-8.3) g/dL Albumin (3.5-5.0) g/dL Globulin (2.2-3.9) gm/dL Albumin/Globulin Ratio (1.0-2.1) Triglycerides (0-149) mg/dL Cholesterol (0-199) mg/dL LDL Cholesterol Direct (0-129) mg/dL HDL Cholesterol (30-70) mg/dL 02/13/17 02/13/17 02/12/17 Range/Units 06:23 06:21 21:05 WBC 10.0 (4.8-10.8) K/uL RBC 5.39 (4.40-5.90) Mil/uL Hgb 15.9 (12.0-18.0) g/dL Hct 47.9 (35.0-51.0) % MCV 88.9 (80.0-94.0) fL MCH 29.5 (27.0-31.0) pg MCHC 33.2 (33.0-37.0) g/dL RDW 13.8 (11.5-14.5) % Plt Count 249 (130-400) K/uL MPV 7.9 (7.2-11.7) fL Neut % (Auto) 72.3 (50.0-75.0) % Lymph % (Auto) 10.8 L (20.0-40.0) % [place] % (Auto) 16.4 H (0.0-10.0) % Eos % (Auto) 0.2 (0.0-4.0) % Baso % (Auto) 0.3 (0.0-2.0) % Neut # 7.2 H (1.8-7.0) K/uL Lymph # 1.1 (1.0-4.3) K/uL [place] # 1.6 H (0.0-0.8) K/uL Eos # 0.0 (0.0-0.7) K/uL Baso # 0.0 (0.0-0.2) K/uL Sodium 135 (132-148) mmol/L Potassium 3.7 (3.6-5.2) mmol/L Chloride 97 L (98-107) mmol/L Carbon Dioxide 30 (22-30) mmol/L Anion Gap 11 (10-20) BUN 13 (9-20) mg/dL Creatinine 1.0 (0.8-1.5) MG/DL Est GFR ( Amer) > 60 Est GFR (Non-Af Amer) > 60 POC Glucose (mg/dL) 165 H (65-110) mg/dL Random Glucose 169 H (75-110) mg/dL Calcium 7.9 L (8.6-10.4) mg/dl Phosphorus 2.8 (2.5-4.5) mg/dL Magnesium 1.6 (1.6-2.3) mg/dL Total Bilirubin 0.9 (0.2-1.3) mg/dL AST 186 H D (17-59) U/L ALT 69 (21-72) U/L Alkaline Phosphatase 73 (38-126) U/L Total Protein 5.7 L (6.3-8.3) g/dL Albumin 2.9 L (3.5-5.0) g/dL Globulin 2.8 (2.2-3.9) gm/dL Albumin/Globulin Ratio 1.0 (1.0-2.1) Triglycerides 131 (0-149) mg/dL Cholesterol 152 (0-199) mg/dL LDL Cholesterol Direct 83 (0-129) mg/dL HDL Cholesterol 41 (30-70) mg/dL Laboratory Results - last 24 hr 02/12/17 02/13/17 02/13/17 21:05 06:21 06:23 WBC 10.0 RBC 5.39 Hgb 15.9 Hct 47.9 MCV 88.9 MCH 29.5 MCHC 33.2 RDW 13.8 Plt Count 249 MPV 7.9 Neut % (Auto) 72.3 Lymph % (Auto) 10.8 L [place] % (Auto) 16.4 H Eos % (Auto) 0.2 Baso % (Auto) 0.3 Neut # 7.2 H Lymph # 1.1 [place] # 1.6 H Eos # 0.0 Baso # 0.0 Sodium 135 Potassium 3.7 Chloride 97 L Carbon Dioxide 30 Anion Gap 11 BUN 13 Creatinine 1.0 Est GFR ( Amer) > 60 Est GFR (Non-Af Amer) > 60 POC Glucose (mg/dL) 165 H Random Glucose 169 H Calcium 7.9 L Phosphorus 2.8 Magnesium 1.6 Total Bilirubin 0.9 AST 186 H D ALT 69 Alkaline Phosphatase 73 Total Protein 5.7 L Albumin 2.9 L Globulin 2.8 Albumin/Globulin Ratio 1.0 Triglycerides 131 Cholesterol 152 LDL Cholesterol Direct 83 HDL Cholesterol 41 02/13/17 02/13/17 02/13/17 07:41 11:40 16:17 WBC RBC Hgb Hct MCV MCH MCHC RDW Plt Count MPV Neut % (Auto) Lymph % (Auto) [place] % (Auto) Eos % (Auto) Baso % (Auto) Neut # Lymph # [place] # Eos # Baso # Sodium Potassium Chloride Carbon Dioxide Anion Gap BUN Creatinine Est GFR ( Amer) Est GFR (Non-Af Amer) POC Glucose (mg/dL) 153 H 252 H 156 H Random Glucose Calcium Phosphorus Magnesium Total Bilirubin AST ALT Alkaline Phosphatase Total Protein Albumin Globulin Albumin/Globulin Ratio Triglycerides Cholesterol LDL Cholesterol Direct HDL Cholesterol EKG/Cardiology Studies: Cardiology / EKG Studies 02/13/17 15:32 EKG [ELECTROCARDIOGRAM] Stat Comment: Mode Of Transportation: Reason For Exam: chest pain Critical Care Progress Note - Nutrition Nutrition: Nutrition Category Date Time Status Heart Healthy Diet [DIET] Diets 02/12/17 Breakfast Active Attending/Attestation - Attestation I have personally seen and examined this patient.: Yes I have fully participated in the care of the patient.: Yes I have reviewed all pertinent clinical information: Yes Notes (Text): 02/13/17 17:27 Patient seen and examined in the intensive care unit. Case discussed with house staff in the morning. Status post cardiac cath for ST elevation MD Cath: LCA 100% occluded; Mid RCA 60-70% occluded, Proximal RCA 20-30% occluded - ECHO: hypokinesia-akinesia of anteroapical wall of LV compatible with coronary heart disease/MD; systolic function mildly-moderately impaired; EF 40- 45%; grade I abnormal relaxation pattern.RV function is normal; no valvular abnormality or peridcardial effusion. - ROMIs: @16:15 <0.0120& @18:38 <0.104 - Troponin 8/ at 1:21am: 20.3000 - Brillinta 90mg PO BID, ASA 81mg PO daily, Coreg 3.125mg PO BID, Enalapril 2.5mg PO daily - Lovenox 40mg SC daily started 02/13 -For transfer to [facility] tomorrow morning
[2017-02-13] MEDS: Enoxaparin 40 mg Syringe SC SCH (10:26)
--- NOTE | 2017-02-13 11:08 | CP.PCM.PN ---
Subjective - Date & Time of Evaluation Date of Evaluation: 02/13/17 Time of Evaluation: 11:05 - Subjective Subjective: No chest pain or shortness of breath. Objective - Vital Signs/Intake and Output Vital Signs (last 24 hours): Temp Pulse Resp BP Pulse Ox 98.4 F 97 H 36 H 102/63 96 02/13/17 08:00 02/13/17 08:02 02/13/17 08:02 02/13/17 10:00 02/13/17 08:02 Intake and Output: 02/13/17 02/13/17 06:59 18:59 Intake Total 100 Output Total 700 Balance -600 - Medications Medications: Current Medications Aspirin (Aspirin Chewable) 81 mg PO DAILY [facility] Last Admin: 02/13/17 10:01 Dose: 81 mg Carvedilol (Coreg) 3.125 mg PO BID [facility] Last Admin: 02/13/17 10:01 Dose: 3.125 mg Enalapril Maleate (Vasotec) 2.5 mg PO DAILY [facility] Last Admin: 02/13/17 10:00 Dose: 2.5 mg Enoxaparin Sodium (Lovenox) 40 mg SC DAILY [facility] Last Admin: 02/13/17 10:26 Dose: 40 mg Famotidine (Pepcid) 20 mg PO BID [facility] Last Admin: 02/13/17 10:01 Dose: 20 mg Insulin Human Regular (Novolin R) 0 unit SC [facility] PRN Reason: Protocol Last Admin: 02/13/17 08:27 Dose: 2 unit Nicotine (Nicoderm Cq) 1 patch TD DAILY [facility] Last Admin: 02/13/17 10:04 Dose: 1 patch Rosuvastatin Calcium (Crestor) 5 mg PO HS [facility] Last Admin: 02/12/17 21:38 Dose: 5 mg Ticagrelor (Brilinta) 90 mg PO BID [facility] Last Admin: 02/13/17 10:01 Dose: 90 mg - Labs Labs: 02/13/17 06:23 02/13/17 06:21 PT 11.5 SECONDS (9.7-12.2) 02/11/17 16:15 INR 1.0 02/11/17 16:15 APTT 27 SECONDS (21-34) 02/11/17 16:15 - Head Exam Head Exam: NORMOCEPHALIC - Neck Exam Neck Exam: Normal Inspection - Respiratory Exam Respiratory Exam: NORMAL BREATHING PATTERN - Cardiovascular Exam Cardiovascular Exam: Tachycardia Additional comments: Sinus tachycardia. - Extremities Exam Extremities Exam: Normal Inspection - Neurological Exam Neurological Exam: Alert, Oriented x3 Assessment and Plan (1) Acute myocardial infarction Assessment & Plan: No chest pain, on DAPT. discussed with patient about his disease and possible transfer and intervention. He and his agrees and will make plans accordingly. Increase Coreg to 6.25 mg PO BID. Status: Acute (2) Hypercholesteremia Assessment & Plan: Continue lipid lowering agents. Status: Acute (3) Hypertension Assessment & Plan: Controlled and if needed increase MADALYN-I. Status: Acute
--- NOTE | 2017-02-13 15:30 | CP.PCM.PN ---
Subjective - Date & Time of Evaluation Date of Evaluation: 02/13/17 Time of Evaluation: 15:30 - Subjective Subjective: Medical Attending Note Follow-up: STEMI, history of diabetes, and smoking Patient seen, and examined at bedside Assistance in translation by RN, Tesha kwethluk serbian-speaking. Patient denies headache, report chest pain, denies palpitations, denies shortness of breathe, denies abdominal pain, denies nausea, denies vomitting, denies numbness, denies tinging, reports constipation; has not had a bowel movement since Saturday. Discussed with Dr. Claire, patient to be transferred [place] [facility] [place] cardiac cath with possibility of CABG. Objective - Vital Signs/Intake and Output Vital Signs (last 24 hours): Temp Pulse Resp BP Pulse Ox 98.4 F 96 H 29 H 113/78 95 02/13/17 12:00 02/13/17 14:03 02/13/17 14:03 02/13/17 14:03 02/13/17 14:03 Intake and Output: 02/13/17 02/13/17 06:59 18:59 Intake Total 100 Output Total 700 Balance -600 - Medications Medications: Current Medications Aspirin (Aspirin Chewable) 81 mg PO DAILY [facility] Last Admin: 02/13/17 10:01 Dose: 81 mg Carvedilol (Coreg) 3.125 mg PO BID [facility] Last Admin: 02/13/17 10:01 Dose: 3.125 mg Enalapril Maleate (Vasotec) 2.5 mg PO DAILY [facility] Last Admin: 02/13/17 10:00 Dose: 2.5 mg Enoxaparin Sodium (Lovenox) 40 mg SC DAILY [facility] Last Admin: 02/13/17 10:26 Dose: 40 mg Famotidine (Pepcid) 20 mg PO BID [facility] Last Admin: 02/13/17 10:01 Dose: 20 mg Insulin Human Regular (Novolin R) 0 unit SC ACHS [facility] PRN Reason: Protocol Last Admin: 02/13/17 13:03 Dose: 4 unit Nicotine (Nicoderm Cq) 1 patch TD DAILY [facility] Last Admin: 02/13/17 10:04 Dose: 1 patch Rosuvastatin Calcium (Crestor) 5 mg PO HS [facility] Last Admin: 02/12/17 21:38 Dose: 5 mg Ticagrelor (Brilinta) 90 mg PO BID [facility] Last Admin: 02/13/17 10:01 Dose: 90 mg - Labs Labs: 02/13/17 06:23 02/13/17 06:21 PT 11.5 SECONDS (9.7-12.2) 02/11/17 16:15 INR 1.0 02/11/17 16:15 APTT 27 SECONDS (21-34) 02/11/17 16:15 - Constitutional Appears: Non-toxic, No Acute Distress - Head Exam Head Exam: NORMAL INSPECTION - Eye Exam Eye Exam: EOMI - ENT Exam ENT Exam: Mucous Membranes Dry - Respiratory Exam Respiratory Exam: Clear to Ausculation Bilateral, NORMAL BREATHING PATTERN. absent: Rales, Rhonchi, Wheezes - Cardiovascular Exam Cardiovascular Exam: RRR, +S1, +S2 - GI/Abdominal Exam GI & Abdominal Exam: Soft, Normal Bowel Sounds. absent: Distended, Firm, Guarding, Rigid, Tenderness, Rebound - Extremities Exam Extremities Exam: Normal Capillary Refill. absent: Pedal Edema, Tenderness - Back Exam Back Exam: absent: CVA tenderness (L), CVA tenderness (R) - Neurological Exam Neurological Exam: Alert, Awake, Oriented x3 - Psychiatric Exam Psychiatric exam: Normal Affect, Normal Mood - Skin Skin Exam: Dry, Intact, Normal Color, Warm Assessment and Plan - Assessment and Plan (Free Text) Assessment: (1) STEMI (ST elevation myocardial infarction) Assessment and Plan: Admit to ICU under hospitalist service Interventional Cardiology: Dr. Claire on board Code Heart in ED on 02/11/17 - EKG: Acute MO; ST elevations in V1-6 - Chest xray: mild to moderate venous congestion with right hilar prominence. - Cath: LCA 100% occluded; Mid RCA 60-70% occluded, Proximal RCA 20-30% occluded - ECHO: f/u - Troponin 02/12 at 1:21am: 20.3000 - Toponin 8 at 11:03am: 107.000 - Lipid Panel: T Chol:152 LDL:83 HDL:41 a1c: 7.9 - Cardiology consulted- Dr. Claire, help appreciated - Brillinta 90mg PO BID, ASA 81mg PO daily, Coreg 3.125mg PO BID, Enalapril 2.5mg PO daily, Crestor 5mg PO HS Discussed with Dr Claire, patient to be transferred tomorrow; at [facility] [place] possible CABG/cath LAD. Patient is aware. Started on gentle hydration given last dose of Metformin on 02/11/17. Patient complained of mild chest, no apparent distress at bedside; ordered for EKG. Status: Acute (2) Diabetes Assessment and Plan: - Lipid Panel: T Chol:152 LDL:83 HDL:41 a1c: 7.9 - Monitor blood glucose - Accuchecks qac and HS - HgbA1c: f/u - ISS - Metformin day of cath on 02/11/17; monitor BUN/Cr Status: Chronic (3) Hypertension Assessment and Plan: Monitor BP - Coreg 3.125mg PO BID - Enalapril 2.5mg PO daily Status: Chronic (4) Hypercholesteremia Assessment and Plan: - Lipid Panel: T Chol:152 LDL:83 HDL:41 - Crestor 5mg PO HS Status: Chronic (5) Constipation Ordered for Ducolax today; hasnt had a bowel movement since Saturday Status: Acute (5) Tobacco abuse Assessment and Plan: Nicotine Patch 21mg/24hr, 1 patch TD Daily Discussed adverse side effects of smoking including cardiac and cancer risk Status: Chronic (6) Prophylactic measure Assessment and Plan: Lovenox 40mg subq daily Pepcid 20mg PO BID ASA 81mg PO Daily Heart Healthy Diet Status: Acute
[2017-02-13] MEDS ORDERED: Bisacodyl 5mg EC Tab PO ONE (15:35)
[2017-02-13] MEDS: Sodium Chloride 0.45% 1,000 ML IV SCH (16:01)
[2017-02-14 04:21] LABS: BASO # 0.3 K/uL (0.0-0.2); EOS # 0.1 K/uL (0.0-0.7); EOS % 1.4 % (0.0-4.0); HEMOGLOBIN 15.5 g/dL (12.0-18.0); LYMPH # 1.1 K/uL (1.0-4.3); LYMPH % 11.2 % (20.0-40.0); MEAN CELL VOLUME 88.6 fL (80.0-94.0); MEAN CORPUSCULAR HEMOGLOBIN 29.9 pg (27.0-31.0); MEAN CORPUSCULAR HGB CONC 33.7 g/dL (33.0-37.0); MEAN PLATELET VOLUME 7.6 fL (7.2-11.7); MONO # 1.4 K/uL (0.0-0.8); MONO % 15.1 % (0.0-10.0); NEUT # 6.6 K/uL (1.8-7.0); NEUT % 69.3 % (50.0-75.0); RBC 5.19 Mil/uL (4.40-5.90); RED CELL DISTRIBUTION WIDTH 13.9 % (11.5-14.5); WHITE BLOOD COUNT 9.5 K/uL (4.8-10.8)
[2017-02-14 04:28] LABS: INR 1.1; PROTHROMBIN TIME 12.7 SECONDS (9.7-12.2)
[2017-02-14 04:31] LABS: ALBUMIN 2.7 g/dL (3.5-5.0)
[2017-02-14 04:34] LABS: ALB/GLOB RATIO 0.9 (1.0-2.1); AST/SGOT 72 U/L (17-59); BLOOD UREA NITROGEN 13 mg/dL (9-20); GFR AFRICAN-AMERICAN > 60; GFR NON-AFRICAN AMERICAN > 60
[2017-02-14 04:35] LABS: ALT/SGPT 56 U/L (21-72); CALCIUM 7.6 mg/dl (8.6-10.4); MAGNESIUM 1.9 mg/dL (1.6-2.3)
[2017-02-14] MEDS: Sodium Chloride 0.45% 1,000 ML IV SCH (04:56)
[2017-02-14] MEDS: (Novolin R) Insulin Human Regular 100 units/ml vial SC SCH ×4 (08:31→22:00)
--- NOTE | 2017-02-14 09:20 | CP.PCM.PN ---
<Mayito Polanco - Last Filed: 02/14/17 22:31> Subjective - Date & Time of Evaluation Date of Evaluation: 02/14/17 Time of Evaluation: 07:00 - Subjective Subjective: PGY-[address] Lockett Patient seen and examined at bedside. Patient reports that he feels better. Denies chest pain at this time as well as dizziness, headaches, SOB, abdominal pain, dysuria. Patient states that last BM was on Saturday. Objective - Vital Signs/Intake and Output Vital Signs (last 24 hours): Temp Pulse Resp BP Pulse Ox 98.7 F 89 18 92/60 L 97 02/14/17 08:00 02/14/17 09:00 02/14/17 09:00 02/14/17 09:00 02/14/17 09:00 Intake and Output: 02/14/17 02/14/17 06:59 18:59 Intake Total 1150 Balance 1150 - Medications Medications: Current Medications Aspirin (Aspirin Chewable) 81 mg PO DAILY [facility] Last Admin: 02/13/17 10:01 Dose: 81 mg Carvedilol (Coreg) 3.125 mg PO BID [facility] Last Admin: 02/13/17 17:08 Dose: 3.125 mg Enalapril Maleate (Vasotec) 2.5 mg PO DAILY [facility] Last Admin: 02/13/17 10:00 Dose: 2.5 mg Enoxaparin Sodium (Lovenox) 40 mg SC DAILY [facility] Last Admin: 02/13/17 10:26 Dose: 40 mg Famotidine (Pepcid) 20 mg PO BID [facility] Last Admin: 02/13/17 17:08 Dose: 20 mg Insulin Human Regular (Novolin R) 0 unit SC [facility] PRN Reason: Protocol Last Admin: 02/14/17 08:31 Dose: 2 unit Nicotine (Nicoderm Cq) 1 patch TD DAILY [facility] Last Admin: 02/13/17 10:04 Dose: 1 patch Rosuvastatin Calcium (Crestor) 5 mg PO HS [facility] Last Admin: 02/13/17 21:20 Dose: 5 mg Ticagrelor (Brilinta) 90 mg PO BID [facility] Last Admin: 02/13/17 17:08 Dose: 90 mg - Labs Labs: 02/14/17 04:16 02/14/17 04:16 PT 12.7 SECONDS (9.7-12.2) H 02/14/17 04:16 INR 1.1 02/14/17 04:16 APTT 32 SECONDS (21-34) D 02/14/17 04:16 - Constitutional Appears: No Acute Distress - Head Exam Head Exam: ATRAUMATIC, NORMAL INSPECTION, NORMOCEPHALIC - Eye Exam Eye Exam: EOMI, PERRL - ENT Exam ENT Exam: Mucous Membranes Moist - Respiratory Exam Respiratory Exam: Clear to Ausculation Bilateral. absent: Rales, Rhonchi, Wheezes - Cardiovascular Exam Cardiovascular Exam: Tachycardia, +S1, +S2 - GI/Abdominal Exam GI & Abdominal Exam: Distended, Soft, Normal Bowel Sounds. absent: Tenderness - Neurological Exam Neurological Exam: Alert, Awake, Oriented x3 Assessment and Plan - Assessment and Plan (Free Text) Plan: 1. STEMI (ST elevation myocardial infarction) Interventional Cardiology: Dr. Claire on board, help appreciated Code Heart in ED on 02/11/17 - EKG: Acute NC; ST elevations in V1-6 - Chest xray: mild to moderate venous congestion with right hilar prominence. - Cath: LCA 100% occluded; Mid RCA 60-70% occluded, Proximal RCA 20-30% occluded - ECHO: 40% LVEF - Troponin 8/ at 1:21am: 20.3000 - Toponin 8/ at 11:03am: 107.000 - Brillinta 90mg PO BID, ASA 81mg PO daily, Coreg 3.125mg PO BID, Enalapril 2.5mg PO daily, Crestor 5mg PO HS Patient to be transferred tomorrow instead of today; [place] [facility] [place]/cath LAD. Patient is aware. Started on gentle hydration given last dose of Metformin on 02/11/17. 2. Diabetes - Lipid Panel: T Chol:152 LDL:83 HDL:41 a1c: 7.9 - Monitor blood glucose - Accuchecks qac and HS - ISS - Metformin day of cath on 02/11/17; monitor BUN/Cr 3. Hypertension Monitor BP - Coreg 3.125mg PO BID - Enalapril 2.5mg PO daily 4. Hypercholesteremia - Lipid Panel: T Chol:152 LDL:83 HDL:41 - Crestor 5mg PO HS 5. Constipation Hasnt had a bowel movement since Saturday02/11/17 Dulcolax given 02/13/17 without efficacy Miralax 17 gm PO daily starting 02/14/17 6. Tobacco Use Nicotine Patch 21mg/24hr, 1 patch TD Daily Discussed adverse side effects of smoking including cardiac and cancer risk 7. Prophylactic measure Lovenox 40mg subq daily Pepcid 20mg PO BID ASA 81mg PO Daily Heart Healthy Diet Case discussed with Dr. Levy Polanco PGY1 <Janice Lockett V - Last Filed: 02/16/17 23:48> Objective - Vital Signs/Intake and Output Vital Signs (last 24 hours): Temp Pulse Resp BP Pulse Ox 98.1 F 91 H 18 92/59 L 99 02/15/17 09:00 02/15/17 11:00 02/15/17 11:00 02/15/17 11:00 02/15/17 07:00 - Labs Labs: 02/15/17 08:16 02/15/17 08:16 PT 12.7 SECONDS (9.7-12.2) H 02/14/17 04:16 INR 1.1 02/14/17 04:16 APTT 32 SECONDS (21-34) D 02/14/17 04:16 Attending/Attestation - Attestation I have personally seen and examined this patient.: Yes I have fully participated in the care of the patient.: Yes I have reviewed all pertinent clinical information, including history, physical exam and plan: Yes Notes (Text): This is late computer entry for 02/14/17. patient seen, examined, and case discussed with day-time resident. Patient seen this morning. Patient's transferred this morning was cancelled; discussed with ICU nurse, Yudelka Gonzalez Patient is no acute distress. Patient is open to the transfer. Discussed with Dr Claire in the afternoon, patient rescheduled for transfer tomorrow [place] [facility] with procedure at 4pm and transfer taking place at 11pm for cardiac cath/possible open heart surgery.
[2017-02-14] MEDS: Enoxaparin 40 mg Syringe SC SCH (09:28)
--- NOTE | 2017-02-14 11:01 | CARD ---
APPROVED REPORT EKG Measurement Heart [id number] <Conclusion> Normal sinus rhythm Low voltage QRS Anteroseptal infarct, possibly acute Lateral injury pattern ACUTE HI / STEMI Abnormal ECG
[2017-02-14] MEDS: POLYETHYLENE GLYCOL 3350 17 GM/Dose PACKET PO SCH (12:24)
--- NOTE | 2017-02-14 14:49 | CP.PCM.PN ---
Subjective - Date & Time of Evaluation Date of Evaluation: 02/14/17 Time of Evaluation: 14:47 - Subjective Subjective: No chest pain. Objective - Vital Signs/Intake and Output Vital Signs (last 24 hours): Temp Pulse Resp BP Pulse Ox 97.5 F L 84 18 93/64 L 97 02/14/17 12:00 02/14/17 14:00 02/14/17 14:00 02/14/17 14:00 02/14/17 14:00 Intake and Output: 02/14/17 02/14/17 06:59 18:59 Intake Total 1150 120 Balance 1150 120 - Medications Medications: Current Medications Aspirin (Aspirin Chewable) 81 mg PO DAILY [facility] Last Admin: 02/14/17 09:26 Dose: 81 mg Carvedilol (Coreg) 3.125 mg PO BID [facility] Last Admin: 02/14/17 09:29 Dose: Not Given Enalapril Maleate (Vasotec) 2.5 mg PO DAILY [facility] Last Admin: 02/14/17 09:29 Dose: Not Given Enoxaparin Sodium (Lovenox) 40 mg SC DAILY [facility] Last Admin: 02/14/17 09:28 Dose: 40 mg Famotidine (Pepcid) 20 mg PO BID [facility] Last Admin: 02/14/17 09:26 Dose: 20 mg Insulin Human Regular (Novolin R) 0 unit SC [facility] PRN Reason: Protocol Last Admin: 02/14/17 12:25 Dose: 6 unit Nicotine (Nicoderm Cq) 1 patch TD DAILY [facility] Last Admin: 02/14/17 09:26 Dose: 1 patch Polyethylene Glycol (Miralax) 17 gm PO DAILY [facility] Last Admin: 02/14/17 12:24 Dose: 17 gm Rosuvastatin Calcium (Crestor) 5 mg PO HS [facility] Last Admin: 02/13/17 21:20 Dose: 5 mg Ticagrelor (Brilinta) 90 mg PO BID [facility] Last Admin: 02/14/17 09:26 Dose: 90 mg - Labs Labs: 02/14/17 04:16 02/14/17 04:16 PT 12.7 SECONDS (9.7-12.2) H 02/14/17 04:16 INR 1.1 02/14/17 04:16 APTT 32 SECONDS (21-34) D 02/14/17 04:16 - Neck Exam Neck Exam: Normal Inspection - Respiratory Exam Respiratory Exam: NORMAL BREATHING PATTERN - Cardiovascular Exam Cardiovascular Exam: REGULAR RHYTHM - Extremities Exam Extremities Exam: Normal Inspection - Neurological Exam Neurological Exam: Alert, Oriented x3 Assessment and Plan (1) Acute myocardial infarction Assessment & Plan: Stable, continue DAPT. Status: Acute (2) Hypercholesteremia Assessment & Plan: Continue lipid lowering agents. Status: Acute (3) Hypertension Status: Acute
[2017-02-15 08:20] VITALS: O2SAT 99
[2017-02-15 08:25] LABS: BASO % 0.6 % (0.0-2.0); EOS # 0.1 K/uL (0.0-0.7); EOS % 1.3 % (0.0-4.0); HEMOGLOBIN 14.7 g/dL (12.0-18.0); LYMPH # 1.2 K/uL (1.0-4.3); LYMPH % 14.6 % (20.0-40.0); MEAN CELL VOLUME 90.2 fL (80.0-94.0); MEAN CORPUSCULAR HEMOGLOBIN 29.8 pg (27.0-31.0); MEAN PLATELET VOLUME 7.8 fL (7.2-11.7); MONO # 1.4 K/uL (0.0-0.8); NEUT # 5.5 K/uL (1.8-7.0); NEUT % 66.5 % (50.0-75.0); RBC 4.93 Mil/uL (4.40-5.90); RED CELL DISTRIBUTION WIDTH 13.7 % (11.5-14.5); WHITE BLOOD COUNT 8.2 K/uL (4.8-10.8)
[2017-02-15] MEDS: (Novolin R) Insulin Human Regular 100 units/ml vial SC SCH ×3 (08:50→11:42)
[2017-02-15 08:56] LABS: ALBUMIN 2.7 g/dL (3.5-5.0)
[2017-02-15 08:58] LABS: GFR AFRICAN-AMERICAN > 60; GFR NON-AFRICAN AMERICAN > 60
[2017-02-15 08:59] LABS: ALB/GLOB RATIO 0.9 (1.0-2.1); ALT/SGPT 45 U/L (21-72); AST/SGOT 37 U/L (17-59); BLOOD UREA NITROGEN 14 mg/dL (9-20); CALCIUM 7.9 mg/dl (8.6-10.4)
[2017-02-15] MEDS: POLYETHYLENE GLYCOL 3350 17 GM/Dose PACKET PO SCH (09:10)
[2017-02-15] MEDS: Enoxaparin 40 mg Syringe SC SCH (09:13)
[2017-02-15 11:18] VITALS: TEMP 98.1
[2017-02-15 11:40] VITALS: BP 92/59; PULSE 91; RESP 18
--- NOTE | 2017-02-15 16:10 | CP.PCM.DIS ---
Provider - Provider Date of Admission: 02/11/17 16:11 Attending physician: Janice Lockett DO Time Spent in preparation of Discharge (in minutes): 34 Diagnosis - Discharge Diagnosis (1) STEMI (ST elevation myocardial infarction) Status: Acute (2) Hypertension Status: Acute (3) Diabetes Status: Acute (4) Hypercholesteremia Status: Chronic (5) Tobacco abuse Status: Acute Hospital Course - Lab Results Lab Results: Micro Results 02/11/17 19:00 Nose MRSA Culture (Admit) - Final MRSA NOT DETECTED Most Recent Lab Values WBC 8.2 K/uL (4.8-10.8) 02/15/17 08:16 RBC 4.93 Mil/uL (4.40-5.90) 02/15/17 08:16 Hgb 14.7 g/dL (12.0-18.0) 02/15/17 08:16 Hct 44.5 % (35.0-51.0) 02/15/17 08:16 MCV 90.2 fL (80.0-94.0) 02/15/17 08:16 MCH 29.8 pg (27.0-31.0) 02/15/17 08:16 MCHC 33.0 g/dL (33.0-37.0) 02/15/17 08:16 RDW 13.7 % (11.5-14.5) 02/15/17 08:16 Plt Count 250 K/uL (130-400) 02/15/17 08:16 MPV 7.8 fL (7.2-11.7) 02/15/17 08:16 Neut % (Auto) 66.5 % (50.0-75.0) 02/15/17 08:16 Lymph % (Auto) 14.6 % (20.0-40.0) L 02/15/17 08:16 Burke % (Auto) 17.0 % (0.0-10.0) H 02/15/17 08:16 Eos % (Auto) 1.3 % (0.0-4.0) 02/15/17 08:16 Baso % (Auto) 0.6 % (0.0-2.0) 02/15/17 08:16 Neut # 5.5 K/uL (1.8-7.0) 02/15/17 08:16 Lymph # 1.2 K/uL (1.0-4.3) 02/15/17 08:16 Burke # 1.4 K/uL (0.0-0.8) H 02/15/17 08:16 Eos # 0.1 K/uL (0.0-0.7) 02/15/17 08:16 Baso # 0.0 K/uL (0.0-0.2) 02/15/17 08:16 Neutrophils % (Manual) 86 % (50-75) H 02/12/17 05:57 Lymphocytes % (Manual) 9 % (20-40) L 02/12/17 05:57 Monocytes % (Manual) 5 % (0-10) 02/12/17 05:57 Platelet Estimate Normal (NORMAL) 02/12/17 05:57 RBC Morphology Normal 02/12/17 05:57 PT 12.7 SECONDS (9.7-12.2) H 02/14/17 04:16 INR 1.1 02/14/17 04:16 APTT 32 SECONDS (21-34) D 02/14/17 04:16 Sodium 136 mmol/L (132-148) 02/15/17 08:16 Potassium 4.3 mmol/L (3.6-5.2) 02/15/17 08:16 Chloride 96 mmol/L (98-107) L 02/15/17 08:16 Carbon Dioxide 30 mmol/L (22-30) 02/15/17 08:16 Anion Gap 14 (10-20) 02/15/17 08:16 BUN 14 mg/dL (9-20) 02/15/17 08:16 Creatinine 1.0 MG/DL (0.8-1.5) 02/15/17 08:16 Est GFR ( Amer) > 60 02/15/17 08:16 Est GFR (Non-Af Amer) > 60 02/15/17 08:16 POC Glucose (mg/dL) 148 mg/dL (65-110) H 02/15/17 11:19 Random Glucose 192 mg/dL (75-110) H 02/15/17 08:16 Hemoglobin A1c 7.9 % (4.2-6.5) H D 02/12/17 14:02 Calcium 7.9 mg/dl (8.6-10.4) L 02/15/17 08:16 Phosphorus 3.3 mg/dL (2.5-4.5) 02/14/17 04:16 Magnesium 1.9 mg/dL (1.6-2.3) 02/14/17 04:16 Total Bilirubin 0.9 mg/dL (0.2-1.3) 02/15/17 08:16 AST 37 U/L (17-59) 02/15/17 08:16 ALT 45 U/L (21-72) 02/15/17 08:16 Alkaline Phosphatase 74 U/L (38-126) 02/15/17 08:16 Total Creatine Kinase 1414 U/L (55-170) H 02/12/17 01:51 CK-MB (Mass) 91.5 ng/mL (0.0-3.38) H 02/12/17 01:51 Troponin I 107.0000 ng/mL (0.00-0.120) H* 02/12/17 11:03 Troponin I, Quant 20.3000 ng/mL (0.00-0.120) H* 02/12/17 01:51 Total Protein 5.8 g/dL (6.3-8.3) L 02/15/17 08:16 Albumin 2.7 g/dL (3.5-5.0) L 02/15/17 08:16 Globulin 3.1 gm/dL (2.2-3.9) 02/15/17 08:16 Albumin/Globulin Ratio 0.9 (1.0-2.1) L 02/15/17 08:16 Triglycerides 131 mg/dL (0-149) 02/13/17 06:21 Cholesterol 152 mg/dL (0-199) 02/13/17 06:21 LDL Cholesterol Direct 83 mg/dL (0-129) 02/13/17 06:21 HDL Cholesterol 41 mg/dL (30-70) 02/13/17 06:21 Blood Type O POSITIVE 02/11/17 16:15 Antibody Screen Negative 02/11/17 16:15 - Hospital Course Hospital Course: On admission: "61 year old male with a medical history of hypertension, diabetes, and hypercholesteremia, presents to the ED via ambulance after experiencing left arm numbness and pain, sweating and severe headache while in 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 He reports that while in the doctor's office, he felt short of breath, slight chest discomfort, and lost consciousness. He states he regained consciousness when he arrived at [facility]. Patient reports having left arm numbness for about 3 months. Patient is s/p cardiac cath which showed LCA 100% occluded, Mid-RCA 60-70% occluded, and proximal RCA 30-40% occluded. He currently smokes 2 packs per day and has smoked for 40 years. Currently, patient reports his headache is a little better and still have left arm numbness. Patient denies having chest pain, palpitations, nausea, vomiting, shortness of breath, dizziness, lightheadedness, changes in vision, and dysuria. " Hospital course: Code Heart in ED 02/11/17. Cardiac catheterization revealed LCA 100% occlusion, mid-RCA 60-70% occlusion, proximal RCA 20-30% occlusion. EKG revealed STEMI. Echocardiogram revealed 40% LVEF. Troponins were elevated. Integrelin drip started for 24 hours. Patient placed on Brillinta 90mg PO BID, ASA 81mg PO daily, Coreg 3.125mg PO BID , Enalapril 2.5mg PO daily, Crestor 5mg PO HS. Patient transferred to [facility] for cardiac cath in anticipation of likely conversion to CABG. Patient was stable for transfer to [facility] in the AM on 02/15/17 where it was decided that they would indeed convert to open heart surgery. Of note during this admission, patient's hemoglobin A1C was elevated at 7.9. Patient had been constipated since Sunday 02/11 but has moved his bowels the evening prior to transfer. At time of transfer, vitals were stable and patient denied chest pain, dyspnea, palpitations, headaches, dizziness. This is a summary of hospital course. For more information, please refer to the medical records. - Date & Time of H&P Date of H&P: 02/15/17 Time of H&P: 10:00 Discharge Exam - Head Exam Head Exam: ATRAUMATIC, NORMAL INSPECTION, NORMOCEPHALIC - Eye Exam Eye Exam: EOMI, PERRL - ENT Exam ENT Exam: Mucous Membranes Moist - Respiratory Exam Respiratory Exam: Clear to PA & Lateral. absent: Rales, Rhonchi, Wheezes - Cardiovascular Exam Cardiovascular Exam: REGULAR RHYTHM, +S1, +S2 - GI/Abdominal Exam GI & Abdominal Exam: Normal Bowel Sounds, Soft. absent: Tenderness - Extremities Exam Extremities exam: pedal pulses present - Neurological Exam Neurological exam: Alert, CN II-XII Intact, Oriented x3 - Skin Skin Exam: Dry, Intact, Normal Color, Warm Discharge Plan - Follow Up Plan Condition: STABLE Disposition: Trans to Other Acute Care [facility] Additional Instructions: Patient will be transferred to [facility] on 02/14/17 at 06:30am for possible CABG procedure. Patient will be under the care of Dr. Claire. Patient is to continue all medications. ASA 81mg PO daily Coreg 3.125mg PO BID Vasotec 2.5mg PO Daily Lovenox 40mg SC Daily Pepcid 20mg PO BID Nicotine patch 21mg/24hr Crestor 5mg PO HS Brillinta 90mg PO BID Insulin sliding scale.
== END 2017-02-15 16:11 | disposition short-term general hospital (02) | DRG 122 ==
LOC: C.ER 15:59 → C.9I 16:11
PROVIDERS: ADMIT Hospitalist; ATTEND Hospitalist
PROC: 4A023N7 Measurement of Cardiac Sampling and Pressure, Left Heart, Percutaneous Approach (ICD-10-PCS; principal; 2017-02-11)
PROC: B2051ZZ Plain Radiography of Left Heart using Low Osmolar Contrast (ICD-10-PCS; 2017-02-11)
PROC: B2011ZZ Plain Radiography of Multiple Coronary Arteries using Low Osmolar Contrast (ICD-10-PCS; 2017-02-11)
DX: I21.09 ST elevation (STEMI) myocardial infarction involving other coronary artery of anterior wall (principal); I25.82 Chronic total occlusion of coronary artery; E11.9 Type 2 diabetes mellitus without complications; I10 Essential (primary) hypertension; I25.10 Atherosclerotic heart disease of native coronary artery without angina pectoris; K59.00 Constipation, unspecified; E78.5 Hyperlipidemia, unspecified; Z72.0 Tobacco use